=== PATIENT | female | born 1985 | race African-American/Black ===

== ENCOUNTER 2016-11-09 10:55 | Emergency (ER) | payer MEDICAID ==
[~2016-11-09] VITALS: Ht 167.6 cm; Wt 66.0 kg
[2016-11-09] MEDS ORDERED: DEXAMETHASONE 4 MG TABLET PO ONE (11:30)
[2016-11-09] MEDS ORDERED: BICILLIN-LA 1,200,000 UNITS/2 ML IM ONE (11:30)
[2016-11-09] MEDS ORDERED: OXYcodone/APAP 7.5/325MG TABLET PO ONE (11:30)
[2016-11-09] MEDS ORDERED: OXYcodone/APAP 5/325MG TABLET ONE (11:33)
[2016-11-09] MEDS ORDERED: DEXAMETHASONE 4 MG TABLET ONE (11:34)
[2016-11-09] MEDS ORDERED: OXYcodone/APAP 7.5/325MG TABLET ONE (11:38)
[2016-11-09] MEDS ORDERED: PLEASE ENTER ALLERGIES MC SCH ×2 (12:00)
[2016-11-09 12:56] VITALS: BP 120/71
== END 2016-11-09 12:57 | disposition home or self-care (01) ==
LOC: ED 11:50
DX: J02.0 Streptococcal pharyngitis (principal)
CPT/HCPCS: 36415; 86308; 93005; 96372; 99285; J0561

== ENCOUNTER 2017-03-06 18:52 | Inpatient (IN) | payer MEDICAID ==
[~2017-03-06] VITALS: Ht 167.6 cm; Wt 73.0 kg
[2017-03-06] MEDS ORDERED: FAMOTIDINE 20 MG/2 ML IVP ONE (19:30)
[2017-03-06] MEDS ORDERED: SODIUM CHLORIDE 0.9% 1,000ML IVBOLUS ONE ×2 (19:30→22:30)
[2017-03-06] MEDS ORDERED: SODIUM CHLORIDE FLUSH 10ML SYR IVF ONE (19:30)
[2017-03-06] MEDS ORDERED: ONDANSETRON 2MG/ML, 2ML IVPush ONE ×2 (19:30→22:30)
[2017-03-06] MEDS ORDERED: PLEASE ENTER HEIGHT AND WEIGHT MC SCH (19:32)
[2017-03-06 20:13] LABS: INTERNATIONAL NORMALIZED RATIO 1.03 (0.93-1.1); PROTHROMBIN TIME 10.6 Seconds (9.6-11.5)
[2017-03-06 20:18] LABS: ALANINE AMINOTRANSFERASE 68 U/L (12-78); ANION GAP 15 mmol/L (5-15); CALCIUM 8.7 mg/dL (8.5-10.1); CHLORIDE 99 mmol/L (98-107)
[2017-03-06 20:20] LABS: MEAN CORPUSCULAR HEMOGLOBIN 17.7 pg (27.0-34.8); MEAN CORPUSCULAR VOLUME 60.5 fL (80-100); MEAN PLATELET VOLUME 7.9 fL (7.4-10.4); PLATELET COUNT 323 x10^3/uL (130-400); RED BLOOD COUNT 5.41 x10^6/uL (3.82-5.3); RED CELL DISTRIBUTION WIDTH 20.1 % (9.6-15.2)
[2017-03-06 20:22] LABS: ALKALINE PHOSPHATASE 60 U/L (45-117); BILIRUBIN,TOTAL 1.1 mg/dL (0.2-1.0)
[2017-03-06 20:41] LABS: MD YES
[2017-03-06 20:43] LABS: BANDS%(MANUAL) 1 % (0-7); LYMPH#(MANUAL) 0.48 x10^3/uL (1-3.4); LYMPHS% (MANUAL) 5 % (22-44); MONOS#(MANUAL) 0.29 x10^3/uL (0.3-2.7); MONOS% (MANUAL) 3 % (2-9); SEG#(MANUAL) 8.74 x10^3/uL (1.8-6.8); SEGS% (MANUAL) 91 % (42-75)
[2017-03-06 20:44] LABS: ANISOCYTOSIS 1+; MICROCYTOSIS 1+; POLYCHROMASIA 1+
[2017-03-06 20:45] LABS: STOMATOCYTES 1+
[2017-03-06 20:46] LABS: <PLATELET ESTIMATE> ADEQUATE; HYPOCHROMIA 3+; LARGE PLATELETS 1+
[2017-03-06 21:17] LABS: MEAN CORPUSCULAR HGB CONC 29.2 g/dL (32.4-35.8)
[2017-03-06] MEDS ORDERED: MORPHINE SULFATE 4 MG/ML, 1ML ONE ×2 (22:18→22:58)
[2017-03-06] MEDS ORDERED: ONDANSETRON 2MG/ML, 2ML ONE ×2 (22:18→22:40)
[2017-03-06] MEDS: MORPHINE SULFATE 4 MG/ML, 1ML IVPush PRN ×2 (22:25→22:59)
[2017-03-06] MEDS ORDERED: FAMOTIDINE 20 MG/2 ML ONE (22:40)
[2017-03-07] MEDS ORDERED: HYDROmorphone 2 MG/ML, 1ML IV ONE
[2017-03-07] MEDS ORDERED: HYDROmorphone 2 MG/ML, 1ML ONE (00:09)
[2017-03-07 00:41] VITALS: BP 181/107
[2017-03-07] MEDS ORDERED: SODIUM CHLORIDE 0.9% 1,000 ML IV ONE (01:00)
[2017-03-07] MEDS ORDERED: BISACODYL 10 MG SUPP PR PRN (01:00)
[2017-03-07] MEDS ORDERED: DOCUSATE 100 MG CAPSULE PO PRN (01:00)
[2017-03-07] MEDS ORDERED: MORPHINE SULFATE 4 MG/ML, 1ML IVPush PRN (03:00)
[2017-03-07 03:06] VITALS: BP_SYST 174; BP_SYST 178; BP_DIAS 110; BP_DIAS 113
[2017-03-07] MEDS ORDERED: SODIUM CHLORIDE 0.9% 1,000ML IVBOLUS ONE (04:30)
[2017-03-07] MEDS: ONDANSETRON 2MG/ML, 2ML IVPush PRN ×2 (04:52→15:54)
[2017-03-07] MEDS: HYDROmorphone 2 MG/ML, 1ML IV PRN ×4 (04:52→20:45)
[2017-03-07] MEDS: SODIUM CHLORIDE 0.9% 1,000 ML IV SCH ×3 (04:54→23:11)
[2017-03-07 05:29] LABS: MICROSCOPIC AUTO
[2017-03-07 06:12] LABS: CHLORIDE 104 mmol/L (98-107)
[2017-03-07 06:18] LABS: MEAN CORPUSCULAR HEMOGLOBIN 17.6 pg (27.0-34.8); MEAN CORPUSCULAR VOLUME 60.5 fL (80-100); MEAN PLATELET VOLUME 8.4 fL (7.4-10.4); PLATELET COUNT 261 x10^3/uL (130-400); RED BLOOD COUNT 5.11 x10^6/uL (3.82-5.3); RED CELL DISTRIBUTION WIDTH 20.1 % (9.6-15.2)
[2017-03-07 06:45] VITALS: BP 168/103
[2017-03-07 06:47] LABS: ALANINE AMINOTRANSFERASE 46 U/L (12-78); ALBUMIN 3.3 g/dL (3.4-5.0); ALKALINE PHOSPHATASE 44 U/L (45-117); ANION GAP 11 mmol/L (5-15); BILIRUBIN,TOTAL 0.8 mg/dL (0.2-1.0); CALCIUM 7.2 mg/dL (8.5-10.1); CHOLESTEROL, TOTAL 267 mg/dL (140-239); CREATININE 0.74 mg/dL (0.55-1.02); HDL CHOL % 50 % (28-40); HDL CHOLESTEROL (DIRECT) 134 mg/dL (40-60); LDL CHOLESTEROL,CALCULATED 123 mg/dL (54-169); LDL/HDL RATIO 0.9 (0.5-3.0); TOTAL PROTEIN 7.5 g/dL (6.4-8.2); TRIGLYCERIDES 52 mg/dL (50-200); VLDL CHOLESTEROL 10 mg/dL (0-25)
[2017-03-07 07:10] LABS: MD YES; MEAN CORPUSCULAR HGB CONC 29.1 g/dL (32.4-35.8)
[2017-03-07 07:12] LABS: BAND#(MANUAL) 0.42 x10^3/uL; BANDS%(MANUAL) 4 % (0-7); LYMPH#(MANUAL) 0.32 x10^3/uL (1-3.4); LYMPHS% (MANUAL) 3 % (22-44); MONOS#(MANUAL) 0.21 x10^3/uL (0.3-2.7); MONOS% (MANUAL) 2 % (2-9); SEG#(MANUAL) 9.56 x10^3/uL (1.8-6.8); SEGS% (MANUAL) 91 % (42-75)
[2017-03-07 07:14] LABS: MICROCYTOSIS 2+
[2017-03-07 07:15] LABS: ANISOCYTOSIS 3+; HYPOCHROMIA 2+; SPHEROCYTES 1+; TARGET CELLS 1+
[2017-03-07 07:16] LABS: <PLATELET ESTIMATE> ADEQUATE; <PLT MORPHOLOGY> NORMAL PLT MORPH
[2017-03-07 07:17] LABS: POLYCHROMASIA 2+
[2017-03-07] MEDS: PANTOPRAZOLE 40 MG IV IVPush SCH (09:54)
[2017-03-07 10:15] LABS: CULTURE INDICATED? NO
[2017-03-07] MEDS ORDERED: MAGNESIUM SULFATE PMX 2GM/50ML 50 ML IV ONE (11:00)
[2017-03-07 12:17] VITALS: BP 165/106
[2017-03-07 19:12] VITALS: BP_SYST 161; BP_SYST 168; BP_DIAS 108; BP_DIAS 97
[2017-03-08] MEDS: HYDROmorphone 2 MG/ML, 1ML IV PRN ×6 (00:35→21:15)
[2017-03-08 00:46] VITALS: BP 141/94
[2017-03-08 05:52] LABS: CHLORIDE 105 mmol/L (98-107)
[2017-03-08 05:59] LABS: ANION GAP 8 mmol/L (5-15); CALCIUM 7.4 mg/dL (8.5-10.1)
[2017-03-08 06:13] LABS: MD YES; MEAN CORPUSCULAR HEMOGLOBIN 17.8 pg (27.0-34.8); MEAN CORPUSCULAR VOLUME 61.3 fL (80-100); MEAN PLATELET VOLUME 9.4 fL (7.4-10.4); PLATELET COUNT 266 x10^3/uL (130-400); RED BLOOD COUNT 4.99 x10^6/uL (3.82-5.3); RED CELL DISTRIBUTION WIDTH 20.8 % (9.6-15.2)
[2017-03-08 06:15] LABS: BAND#(MANUAL) 0.25 x10^3/uL; BANDS%(MANUAL) 2 % (0-7); LYMPH#(MANUAL) 0.38 x10^3/uL (1-3.4); LYMPHS% (MANUAL) 3 % (22-44); MONOS#(MANUAL) 0.38 x10^3/uL (0.3-2.7); MONOS% (MANUAL) 3 % (2-9); NRBC % (MANUAL) 1 % (0-1); SEG#(MANUAL) 11.59 x10^3/uL (1.8-6.8); SEGS% (MANUAL) 92 % (42-75)
[2017-03-08 06:16] LABS: ANISOCYTOSIS 2+; HYPOCHROMIA 2+; MICROCYTOSIS 2+; POLYCHROMASIA 1+
[2017-03-08 06:17] LABS: <PLATELET ESTIMATE> ADEQUATE; LARGE PLATELETS 1+; SPHEROCYTES 1+; STOMATOCYTES 1+; TARGET CELLS 2+
[2017-03-08] MEDS: SODIUM CHLORIDE 0.9% 1,000 ML IV SCH ×2 (06:55→14:45)
[2017-03-08 08:24] VITALS: BP 142/95
[2017-03-08] MEDS: PANTOPRAZOLE 40 MG IV IVPush SCH (09:00)
[2017-03-08] MEDS: ONDANSETRON 2MG/ML, 2ML IVPush PRN ×3 (10:13→18:01)
[2017-03-08 13:13] VITALS: BP 139/91
[2017-03-08] MEDS: NS + 20MEQ KCL 1,000 ML IV SCH (18:00)
[2017-03-08] MEDS ORDERED: OMNIPAQUE 350 MG/ML, 100ML BOTTLE ONE (19:29)
[2017-03-08 20:03] VITALS: BP 131/88
[2017-03-09 00:41] VITALS: BP 127/85
[2017-03-09] MEDS: ONDANSETRON 2MG/ML, 2ML IVPush PRN ×3 (00:41→19:41)
[2017-03-09] MEDS: HYDROmorphone 2 MG/ML, 1ML IV PRN ×8 (00:42→23:56)
[2017-03-09] MEDS: NS + 20MEQ KCL 1,000 ML IV SCH ×2 (04:02→16:02)
[2017-03-09 04:41] LABS: MEAN CORPUSCULAR HEMOGLOBIN 17.9 pg (27.0-34.8); MEAN CORPUSCULAR VOLUME 61.1 fL (80-100); MEAN PLATELET VOLUME 9.1 fL (7.4-10.4); PLATELET COUNT 226 x10^3/uL (130-400); RED BLOOD COUNT 4.57 x10^6/uL (3.82-5.3); RED CELL DISTRIBUTION WIDTH 21.4 % (9.6-15.2)
[2017-03-09 04:50] LABS: CHLORIDE 105 mmol/L (98-107)
[2017-03-09 05:01] LABS: ALANINE AMINOTRANSFERASE 21 U/L (12-78); ALBUMIN 2.5 g/dL (3.4-5.0); ALKALINE PHOSPHATASE 47 U/L (45-117); ANION GAP 8 mmol/L (5-15); BILIRUBIN,TOTAL 1.1 mg/dL (0.2-1.0); CALCIUM 7.7 mg/dL (8.5-10.1); CREATININE 0.65 mg/dL (0.55-1.02); TOTAL PROTEIN 6.5 g/dL (6.4-8.2)
[2017-03-09 06:07] LABS: MEAN CORPUSCULAR HGB CONC 29.2 g/dL (32.4-35.8)
[2017-03-09 06:08] LABS: MD YES
[2017-03-09 06:11] LABS: BAND#(MANUAL) 0.44 x10^3/uL; BANDS%(MANUAL) 3 % (0-7); LYMPH#(MANUAL) 0.15 x10^3/uL (1-3.4); LYMPHS% (MANUAL) 1 % (22-44); MONOS#(MANUAL) 0.73 x10^3/uL (0.3-2.7); MONOS% (MANUAL) 5 % (2-9); SEG#(MANUAL) 13.29 x10^3/uL (1.8-6.8); SEGS% (MANUAL) 91 % (42-75)
[2017-03-09 06:12] LABS: ANISOCYTOSIS 2+
[2017-03-09 06:13] LABS: HYPOCHROMIA 2+; MICROCYTOSIS 1+
[2017-03-09 06:15] LABS: POLYCHROMASIA 1+
[2017-03-09 06:16] LABS: <PLATELET ESTIMATE> ADEQUATE; <PLT MORPHOLOGY> NORMAL PLT MORPH; SPHEROCYTES 2+; TARGET CELLS 2+
[2017-03-09] MEDS: PANTOPRAZOLE 40 MG IV IVPush SCH (07:31)
[2017-03-09 08:14] VITALS: BP 115/73
[2017-03-09 13:38] VITALS: BP 118/74
[2017-03-09] MEDS ORDERED: CEFTRIAXONE PMX 1GM/50ML 50 ML IV SCH (15:00)
[2017-03-09] MEDS: METRONIDAZOLE PMX 500MG/100ML 100 ML IV SCH ×2 (16:02→23:56)
[2017-03-09] MEDS: CEFTRIAXONE 1,000 MG in DEXTROSE 5% 50 ML IV SCH (17:52)
[2017-03-09 18:46] LABS: RAPID INFLUENZA A Negative (Negative); RAPID INFLUENZA B Negative (Negative)
[2017-03-09 19:23] VITALS: BP 120/81
[2017-03-10 01:26] VITALS: BP 106/66
[2017-03-10] MEDS: HYDROmorphone 2 MG/ML, 1ML IV PRN ×7 (03:23→23:05)
[2017-03-10 04:15] LABS: CLOSTRIDIUM DIFFICILE TOXIN NEGATIVE (Negative)
[2017-03-10 04:18] LABS: CLOSTRIDIUM DIFFICILE ANTIGEN POSITIVE
[2017-03-10] MEDS: NS + 20MEQ KCL 1,000 ML IV SCH ×2 (04:19→15:29)
[2017-03-10 04:53] LABS: MEAN CORPUSCULAR HEMOGLOBIN 18.1 pg (27.0-34.8); MEAN CORPUSCULAR VOLUME 61.2 fL (80-100); MEAN PLATELET VOLUME 9.9 fL (7.4-10.4); PLATELET COUNT 220 x10^3/uL (130-400); RED BLOOD COUNT 4.01 x10^6/uL (3.82-5.3); RED CELL DISTRIBUTION WIDTH 21.6 % (9.6-15.2)
[2017-03-10 04:59] LABS: ANION GAP 7 mmol/L (5-15); CALCIUM 7.9 mg/dL (8.5-10.1); CHLORIDE 104 mmol/L (98-107)
[2017-03-10] MEDS ORDERED: VANCOMYCIN 50 MG/ML ORAL SUSP PO SCH (05:00)
[2017-03-10 05:01] LABS: CREATININE 0.56 mg/dL (0.55-1.02)
[2017-03-10 06:26] LABS: MD YES; MEAN CORPUSCULAR HGB CONC 29.7 g/dL (32.4-35.8)
[2017-03-10 06:29] LABS: ANISOCYTOSIS 2+; BAND#(MANUAL) 0.11 x10^3/uL; BANDS%(MANUAL) 1 % (0-7); BASOS#(MANUAL) 0.23 x10^3/uL (0-0.1); BASOS% (MANUAL) 2 % (0-1); HYPOCHROMIA 2+; LYMPHS% (MANUAL) 8 % (22-44); MONOS% (MANUAL) 8 % (2-9); NRBC % (MANUAL) 2 % (0-1); POLYCHROMASIA 1+; SEG#(MANUAL) 9.15 x10^3/uL (1.8-6.8); SEGS% (MANUAL) 81 % (42-75)
[2017-03-10 06:30] LABS: MICROCYTOSIS 2+
[2017-03-10 06:31] LABS: <PLATELET ESTIMATE> ADEQUATE; LARGE PLATELETS 1+
[2017-03-10 06:32] LABS: TARGET CELLS 1+
[2017-03-10 06:54] VITALS: BP 109/70
[2017-03-10] MEDS: METRONIDAZOLE PMX 500MG/100ML 100 ML IV SCH ×2 (08:39→15:23)
[2017-03-10] MEDS: PANTOPRAZOLE 40 MG IV IVPush SCH (08:40)
[2017-03-10] MEDS ORDERED: IBUPROFEN 600 MG TABLET PO PRN (09:00)
[2017-03-10] MEDS: ACETAMINOPHEN 325 MG TABLET PO PRN (10:10)
[2017-03-10 13:00] VITALS: BP 115/76
[2017-03-10] MEDS: CEFTRIAXONE 1,000 MG in DEXTROSE 5% 50 ML IV SCH (16:54)
[2017-03-10] MEDS: IRON SUCROSE COMPLEX 100MG/5ML IV SCH (18:46)
[2017-03-10 19:58] VITALS: BP 118/73
[2017-03-11] VITALS (14 sets, daily range): BP systolic 110–136; BP diastolic 70–96
[2017-03-11] MEDS: METRONIDAZOLE PMX 500MG/100ML 100 ML IV SCH ×3 (01:01→15:29)
[2017-03-11] MEDS: HYDROmorphone 2 MG/ML, 1ML IV PRN ×7 (02:07→21:34)
[2017-03-11 05:19] LABS: INTERNATIONAL NORMALIZED RATIO 1.07 (0.93-1.1); PROTHROMBIN TIME 11.1 Seconds (9.6-11.5)
[2017-03-11 05:26] LABS: CHLORIDE 106 mmol/L (98-107)
[2017-03-11 05:29] LABS: MEAN CORPUSCULAR HEMOGLOBIN 18.1 pg (27.0-34.8); MEAN CORPUSCULAR VOLUME 60.8 fL (80-100); MEAN PLATELET VOLUME 10.4 fL (7.4-10.4); PLATELET COUNT 240 x10^3/uL (130-400); RED BLOOD COUNT 3.65 x10^6/uL (3.82-5.3); RED CELL DISTRIBUTION WIDTH 22.9 % (9.6-15.2)
[2017-03-11 05:32] LABS: MEAN CORPUSCULAR HGB CONC 29.8 g/dL (32.4-35.8)
[2017-03-11 05:42] LABS: ANION GAP 10 mmol/L (5-15); CALCIUM 8.1 mg/dL (8.5-10.1); CREATININE 0.53 mg/dL (0.55-1.02)
[2017-03-11 05:56] LABS: MD YES
[2017-03-11 05:59] LABS: <PLATELET ESTIMATE> ADEQUATE; ANISOCYTOSIS 2+; BAND#(MANUAL) 0.38 x10^3/uL; BANDS%(MANUAL) 3 % (0-7); GIANT PLATELETS 1+; HYPOCHROMIA 2+; LARGE PLATELETS 1+; LYMPH#(MANUAL) 1.66 x10^3/uL (1-3.4); LYMPHS% (MANUAL) 13 % (22-44); MICROCYTOSIS 2+; MONOS#(MANUAL) 2.69 x10^3/uL (0.3-2.7); MONOS% (MANUAL) 21 % (2-9); POLYCHROMASIA 1+; SEG#(MANUAL) 8.06 x10^3/uL (1.8-6.8); SEGS% (MANUAL) 63 % (42-75); TARGET CELLS 1+
[2017-03-11 06:02] LABS: SMUDGE CELLS 1+
[2017-03-11] MEDS: PANTOPRAZOLE 40 MG IV IVPush SCH (07:51)
[2017-03-11] MEDS: IRON SUCROSE COMPLEX 100MG/5ML IV SCH (07:51)
[2017-03-11] MEDS ORDERED: DIPHENHYDRAMINE 25 MG CAPSULE ONE (09:10)
[2017-03-11] MEDS: ACETAMINOPHEN 325 MG TABLET PO PRN (09:12)
[2017-03-11] MEDS ORDERED: DIPHENHYDRAMINE 25 MG CAPSULE PO ONE (09:30)
[2017-03-11] MEDS: CEFTRIAXONE 1,000 MG in DEXTROSE 5% 50 ML IV SCH (17:28)
[2017-03-12] MEDS: HYDROmorphone 2 MG/ML, 1ML IV PRN ×8 (00:39→22:05)
[2017-03-12] MEDS: ACETAMINOPHEN 325 MG TABLET PO PRN ×4 (00:41→19:37)
[2017-03-12] MEDS: METRONIDAZOLE PMX 500MG/100ML 100 ML IV SCH ×3 (00:42→15:52)
[2017-03-12 04:16] VITALS: BP 134/88
[2017-03-12 04:50] LABS: ALANINE AMINOTRANSFERASE 18 U/L (12-78); ALBUMIN 2.3 g/dL (3.4-5.0); ANION GAP 9 mmol/L (5-15); CALCIUM 8.1 mg/dL (8.5-10.1); CHLORIDE 105 mmol/L (98-107); CREATININE 0.58 mg/dL (0.55-1.02)
[2017-03-12 04:52] LABS: ALKALINE PHOSPHATASE 65 U/L (45-117); BILIRUBIN,TOTAL 0.4 mg/dL (0.2-1.0); TOTAL PROTEIN 6.5 g/dL (6.4-8.2)
[2017-03-12 04:58] LABS: MEAN CORPUSCULAR HEMOGLOBIN 20.2 pg (27.0-34.8); MEAN CORPUSCULAR VOLUME 67.5 fL (80-100); MEAN PLATELET VOLUME 9.1 fL (7.4-10.4); PLATELET COUNT 256 x10^3/uL (130-400); RED BLOOD COUNT 4.57 x10^6/uL (3.82-5.3)
[2017-03-12 05:46] LABS: MD YES
[2017-03-12 05:48] LABS: BAND#(MANUAL) 0.17 x10^3/uL; BANDS%(MANUAL) 1 % (0-7); BASOS#(MANUAL) 0.17 x10^3/uL (0-0.1); BASOS% (MANUAL) 1 % (0-1); LYMPH#(MANUAL) 1.32 x10^3/uL (1-3.4); LYMPHS% (MANUAL) 8 % (22-44); MONOS#(MANUAL) 2.81 x10^3/uL (0.3-2.7); MONOS% (MANUAL) 17 % (2-9); NRBC % (MANUAL) 1 % (0-1); SEG#(MANUAL) 12.05 x10^3/uL (1.8-6.8); SEGS% (MANUAL) 73 % (42-75)
[2017-03-12 05:49] LABS: ANISOCYTOSIS 2+
[2017-03-12 05:50] LABS: <PLATELET ESTIMATE> ADEQUATE; HYPOCHROMIA 2+; LARGE PLATELETS 1+; MICROCYTOSIS 2+; POLYCHROMASIA 1+; TARGET CELLS 1+
[2017-03-12 05:51] LABS: SPHEROCYTES 1+
[2017-03-12 06:50] VITALS: BP 136/89
[2017-03-12] MEDS: IRON SUCROSE COMPLEX 100MG/5ML IV SCH (08:35)
[2017-03-12] MEDS: PANTOPRAZOLE 40 MG IV IVPush SCH (08:35)
[2017-03-12 12:42] VITALS: BP 143/92
[2017-03-12] MEDS: CEFTRIAXONE 1,000 MG in DEXTROSE 5% 50 ML IV SCH (17:11)
[2017-03-12 19:16] VITALS: BP 150/86
[2017-03-13] MEDS: HYDROmorphone 2 MG/ML, 1ML IV PRN ×5 (01:03→15:40)
[2017-03-13] MEDS: ACETAMINOPHEN 325 MG TABLET PO PRN ×4 (01:03→21:42)
[2017-03-13] MEDS: METRONIDAZOLE PMX 500MG/100ML 100 ML IV SCH ×3 (01:03→15:31)
[2017-03-13 01:04] VITALS: BP 138/87
[2017-03-13 05:18] LABS: MEAN CORPUSCULAR HEMOGLOBIN 20.1 pg (27.0-34.8); MEAN CORPUSCULAR VOLUME 67.4 fL (80-100); MEAN PLATELET VOLUME 10.1 fL (7.4-10.4); PLATELET COUNT 354 x10^3/uL (130-400); RED BLOOD COUNT 4.68 x10^6/uL (3.82-5.3); RED CELL DISTRIBUTION WIDTH 27.7 % (9.6-15.2)
[2017-03-13 05:57] LABS: MD YES
[2017-03-13 05:58] LABS: BAND#(MANUAL) 1.13 x10^3/uL; BANDS%(MANUAL) 6 % (0-7); MEAN CORPUSCULAR HGB CONC 29.9 g/dL (32.4-35.8); SEG#(MANUAL) 13.42 x10^3/uL (1.8-6.8); SEGS% (MANUAL) 71 % (42-75)
[2017-03-13 05:59] LABS: <PLATELET ESTIMATE> ADEQUATE; EOS#(MANUAL) 0.19 x10^3/uL (0.0-0.4); EOS% (MANUAL) 1 % (1-7); GIANT PLATELETS 1+; LYMPHS% (MANUAL) 9 % (22-44); METAMYELOCYTES# (MANUAL) 0.19 x10^3/uL (0-0); METAMYELOCYTES% (MANUAL) 1 % (0-1); MONOS#(MANUAL) 2.27 x10^3/uL (0.3-2.7); MONOS% (MANUAL) 12 % (2-9)
[2017-03-13 06:00] LABS: ANISOCYTOSIS 2+; HYPOCHROMIA 2+; LARGE PLATELETS 1+; MICROCYTOSIS 2+; POLYCHROMASIA 1+; TARGET CELLS 1+
[2017-03-13 07:04] VITALS: BP 146/90
[2017-03-13] MEDS: IRON SUCROSE COMPLEX 100MG/5ML IV SCH (08:22)
[2017-03-13] MEDS: PANTOPRAZOLE 40 MG IV IVPush SCH (08:22)
[2017-03-13 13:48] VITALS: BP 132/92
[2017-03-13] MEDS ORDERED: CEFTRIAXONE 1,000 MG in SODIUM CHLORIDE 0.9% 50 ML IV SCH (17:00)
[2017-03-13] MEDS: OXYcodone/APAP 5/325MG TABLET PO PRN ×2 (18:21→22:20)
[2017-03-13] MEDS: VANCOMYCIN 50 MG/ML ORAL SUSP PO SCH ×2 (18:25→22:26)
[2017-03-13 19:55] VITALS: BP 145/94
[2017-03-14] MEDS: OXYcodone/APAP 5/325MG TABLET PO PRN ×6 (02:27→22:47)
[2017-03-14 03:38] VITALS: BP 139/88
[2017-03-14] MEDS: ACETAMINOPHEN 325 MG TABLET PO PRN ×2 (03:46→09:59)
[2017-03-14] MEDS: VANCOMYCIN 50 MG/ML ORAL SUSP PO SCH ×4 (05:20→22:46)
[2017-03-14 05:48] LABS: MEAN CORPUSCULAR VOLUME 66.8 fL (80-100); MEAN PLATELET VOLUME 10.2 fL (7.4-10.4); PLATELET COUNT 432 x10^3/uL (130-400); RED BLOOD COUNT 4.78 x10^6/uL (3.82-5.3); RED CELL DISTRIBUTION WIDTH 28.5 % (9.6-15.2)
[2017-03-14 05:51] LABS: MD YES
[2017-03-14 05:52] LABS: BAND#(MANUAL) 0.19 x10^3/uL; BANDS%(MANUAL) 1 % (0-7); LYMPH#(MANUAL) 1.16 x10^3/uL (1-3.4); LYMPHS% (MANUAL) 6 % (22-44); MONOS#(MANUAL) 2.12 x10^3/uL (0.3-2.7); MONOS% (MANUAL) 11 % (2-9); SEG#(MANUAL) 15.83 x10^3/uL (1.8-6.8); SEGS% (MANUAL) 82 % (42-75)
[2017-03-14 05:53] LABS: ANISOCYTOSIS 2+; HYPOCHROMIA 2+; MICROCYTOSIS 2+; POLYCHROMASIA 1+; TARGET CELLS 1+
[2017-03-14 05:55] LABS: <PLATELET ESTIMATE> INCREASED; GIANT PLATELETS 1+; LARGE PLATELETS 1+
[2017-03-14 05:57] LABS: MEAN CORPUSCULAR HGB CONC 29.9 g/dL (32.4-35.8)
[2017-03-14 06:55] LABS: MICROSCOPIC INDICATED
[2017-03-14 07:02] LABS: CULTURE INDICATED? NO
[2017-03-14 07:25] VITALS: BP 151/90
[2017-03-14] MEDS: PANTOPRAZOLE 20MG TABLET PO SCH (10:00)
[2017-03-14] MEDS: IRON SUCROSE COMPLEX 100MG/5ML IV SCH (10:00)
[2017-03-14 13:00] VITALS: BP 125/83
[2017-03-14] MEDS: FERROUS SULFATE 325 MG TABLET PO SCH (16:39)
[2017-03-14] MEDS: HYDROmorphone 2 MG/ML, 1ML IVPush PRN ×2 (16:39→22:47)
[2017-03-14 19:47] VITALS: BP 150/90
[2017-03-15 01:21] VITALS: BP 149/96
[2017-03-15] MEDS: OXYcodone/APAP 5/325MG TABLET PO PRN ×5 (03:34→21:22)
[2017-03-15] MEDS: VANCOMYCIN 50 MG/ML ORAL SUSP PO SCH ×4 (05:04→22:56)
[2017-03-15] MEDS: HYDROmorphone 2 MG/ML, 1ML IVPush PRN ×2 (05:04→11:09)
[2017-03-15 05:08] LABS: ALANINE AMINOTRANSFERASE 16 U/L (12-78); ALBUMIN 2.4 g/dL (3.4-5.0); ANION GAP 8 mmol/L (5-15); CALCIUM 8.6 mg/dL (8.5-10.1); CHLORIDE 107 mmol/L (98-107); CREATININE 0.63 mg/dL (0.55-1.02)
[2017-03-15 05:10] LABS: ALKALINE PHOSPHATASE 95 U/L (45-117); BILIRUBIN,TOTAL 0.3 mg/dL (0.2-1.0); TOTAL PROTEIN 6.9 g/dL (6.4-8.2)
[2017-03-15 05:30] LABS: BASOPHILS # (AUTO) 0.06 x10^3/uL (0-0.1); BASOPHILS % (AUTO) 0 % (0-1); EOSINOPHILS # (AUTO) 0.18 x10^3/uL (0-0.4); EOSINOPHILS % (AUTO) 1 % (1-7); LYMPHOCYTES # (AUTO) 1.77 x10^3/uL (1-3.4); LYMPHOCYTES % (AUTO) 9 % (22-44); MD SCAN; MEAN CORPUSCULAR HEMOGLOBIN 20.5 pg (27.0-34.8); MEAN CORPUSCULAR HGB CONC 30.3 g/dL (32.4-35.8); MEAN CORPUSCULAR VOLUME 67.8 fL (80-100); MEAN PLATELET VOLUME 10.3 fL (7.4-10.4); MONOCYTES # (AUTO) 1.34 x10^3/uL (0.2-0.8); MONOCYTES % (AUTO) 7 % (2-9); NEUTROPHILS # (AUTO) 15.42 x10^3/uL (1.8-6.8); NEUTROPHILS % (AUTO) 82 % (42-75); PLATELET COUNT 527 x10^3/uL (130-400); RED BLOOD COUNT 4.92 x10^6/uL (3.82-5.3); RED CELL DISTRIBUTION WIDTH 29.7 % (9.6-15.2)
[2017-03-15 07:08] VITALS: BP 143/94
[2017-03-15] MEDS: FERROUS SULFATE 325 MG TABLET PO SCH ×2 (08:06→17:33)
[2017-03-15] MEDS: PANTOPRAZOLE 20MG TABLET PO SCH (08:06)
[2017-03-15 13:47] VITALS: BP 121/88
[2017-03-15] MEDS: KETOROLAC 30 MG/1 ML IM PRN (18:27)
[2017-03-15 19:08] VITALS: BP 122/81
[2017-03-16 01:26] VITALS: BP 154/99
[2017-03-16] MEDS: OXYcodone/APAP 5/325MG TABLET PO PRN ×7 (01:26→21:40)
[2017-03-16] MEDS: VANCOMYCIN 50 MG/ML ORAL SUSP PO SCH ×4 (05:25→22:56)
[2017-03-16] MEDS: FERROUS SULFATE 325 MG TABLET PO SCH ×2 (07:40→17:29)
[2017-03-16] MEDS: PANTOPRAZOLE 20MG TABLET PO SCH (07:40)
[2017-03-16 07:53] VITALS: BP 149/95
[2017-03-16] MEDS ORDERED: POTASSIUM CHLORIDE 40 MEQ in SODIUM CHLORIDE 0.9% 500 ML IV ONE (09:30)
[2017-03-16] MEDS: KETOROLAC 30 MG/1 ML IM PRN (12:32)
[2017-03-16 13:45] VITALS: BP 137/90
[2017-03-16 20:06] VITALS: BP 139/92
[2017-03-17 00:56] VITALS: BP 136/90
[2017-03-17] MEDS: OXYcodone/APAP 5/325MG TABLET PO PRN ×6 (02:02→22:09)
[2017-03-17 04:42] LABS: ALBUMIN 2.7 g/dL (3.4-5.0); ANION GAP 5 mmol/L (5-15); CALCIUM 8.6 mg/dL (8.5-10.1); CHLORIDE 107 mmol/L (98-107)
[2017-03-17 04:46] LABS: ALANINE AMINOTRANSFERASE 23 U/L (12-78); ALKALINE PHOSPHATASE 131 U/L (45-117); BILIRUBIN,TOTAL 0.3 mg/dL (0.2-1.0); CREATININE 0.74 mg/dL (0.55-1.02); TOTAL PROTEIN 7.2 g/dL (6.4-8.2)
[2017-03-17 04:48] LABS: MEAN CORPUSCULAR HEMOGLOBIN 20.4 pg (27.0-34.8); MEAN CORPUSCULAR HGB CONC 30.1 g/dL (32.4-35.8); MEAN CORPUSCULAR VOLUME 67.8 fL (80-100); MEAN PLATELET VOLUME 9.7 fL (7.4-10.4); PLATELET COUNT 699 x10^3/uL (130-400); RED BLOOD COUNT 5.01 x10^6/uL (3.82-5.3); RED CELL DISTRIBUTION WIDTH 30.1 % (9.6-15.2)
[2017-03-17] MEDS: VANCOMYCIN 50 MG/ML ORAL SUSP PO SCH ×3 (04:54→18:11)
[2017-03-17 06:26] LABS: BASOPHILS # (AUTO) 0.03 x10^3/uL (0-0.1); BASOPHILS % (AUTO) 0 % (0-1); EOSINOPHILS # (AUTO) 0.27 x10^3/uL (0-0.4); EOSINOPHILS % (AUTO) 2 % (1-7); LYMPHOCYTES # (AUTO) 1.59 x10^3/uL (1-3.4); LYMPHOCYTES % (AUTO) 11 % (22-44); MD SCAN; MONOCYTES # (AUTO) 0.82 x10^3/uL (0.2-0.8); MONOCYTES % (AUTO) 6 % (2-9); NEUTROPHILS # (AUTO) 11.49 x10^3/uL (1.8-6.8); NEUTROPHILS % (AUTO) 81 % (42-75)
[2017-03-17 07:57] VITALS: BP 127/86
[2017-03-17] MEDS: FERROUS SULFATE 325 MG TABLET PO SCH ×2 (09:13→18:11)
[2017-03-17] MEDS: PANTOPRAZOLE 20MG TABLET PO SCH (09:13)
[2017-03-17 13:11] LABS: MICROSCOPIC NOT IND
[2017-03-17 13:17] LABS: CULTURE INDICATED? NO
[2017-03-17 13:50] VITALS: BP 118/78
[2017-03-17 19:29] VITALS: BP 149/91
[2017-03-18] MEDS: VANCOMYCIN 50 MG/ML ORAL SUSP PO SCH ×2 (00:16→05:14)
[2017-03-18] MEDS: KETOROLAC 30 MG/1 ML IM PRN ×2 (00:24→22:11)
[2017-03-18] MEDS: OXYcodone/APAP 5/325MG TABLET PO PRN ×5 (04:08→22:11)
[2017-03-18 04:09] VITALS: BP 147/96
[2017-03-18 04:30] LABS: MEAN CORPUSCULAR HEMOGLOBIN 20.2 pg (27.0-34.8); MEAN CORPUSCULAR VOLUME 67.8 fL (80-100); MEAN PLATELET VOLUME 10.2 fL (7.4-10.4); PLATELET COUNT 658 x10^3/uL (130-400); RED BLOOD COUNT 4.91 x10^6/uL (3.82-5.3); RED CELL DISTRIBUTION WIDTH 30.3 % (9.6-15.2)
[2017-03-18 04:33] LABS: MEAN CORPUSCULAR HGB CONC 29.9 g/dL (32.4-35.8)
[2017-03-18 04:42] LABS: ALBUMIN 2.7 g/dL (3.4-5.0); ANION GAP 8 mmol/L (5-15); CALCIUM 8.8 mg/dL (8.5-10.1); CHLORIDE 106 mmol/L (98-107)
[2017-03-18 04:47] LABS: ALANINE AMINOTRANSFERASE 21 U/L (12-78); ALKALINE PHOSPHATASE 107 U/L (45-117); BILIRUBIN,TOTAL 0.3 mg/dL (0.2-1.0); CREATININE 0.67 mg/dL (0.55-1.02)
[2017-03-18 05:53] LABS: BASOPHILS # (AUTO) 0.05 x10^3/uL (0-0.1); BASOPHILS % (AUTO) 0 % (0-1); EOSINOPHILS # (AUTO) 0.19 x10^3/uL (0-0.4); EOSINOPHILS % (AUTO) 2 % (1-7); LYMPHOCYTES # (AUTO) 2.22 x10^3/uL (1-3.4); LYMPHOCYTES % (AUTO) 18 % (22-44); MD SCAN; MONOCYTES # (AUTO) 0.62 x10^3/uL (0.2-0.8); MONOCYTES % (AUTO) 5 % (2-9); NEUTROPHILS # (AUTO) 9.41 x10^3/uL (1.8-6.8); NEUTROPHILS % (AUTO) 75 % (42-75)
[2017-03-18 07:20] VITALS: BP 147/96
[2017-03-18] MEDS: FERROUS SULFATE 325 MG TABLET PO SCH ×2 (08:16→17:11)
[2017-03-18] MEDS: PANTOPRAZOLE 20MG TABLET PO SCH (08:16)
[2017-03-18 13:17] VITALS: BP 127/89
[2017-03-18] MEDS ORDERED: OXYC5TAB3 PO (16:20)
[2017-03-18] MEDS ORDERED: SENN1TAB7 PO (16:20)
[2017-03-18] MEDS ORDERED: FERR-36 PO (16:20)
[2017-03-18] MEDS ORDERED: PANT20TA3 PO (16:20)
[2017-03-18 19:49] VITALS: BP 122/82
== END 2017-03-18 22:00 | disposition home or self-care (01) | DRG 871 ==
LOC: ED 22:05 → EDIP 03-07 00:10 → 3NW 03-07 00:39
PROVIDERS: ADMIT Surgery; ATTEND Family Medicine
PROC: 30233N1 Transfusion of Nonautologous Red Blood Cells into Peripheral Vein, Percutaneous Approach (ICD-10-PCS; principal; 2017-03-11)
DX: A41.9 Sepsis, unspecified organism (principal); K85.20 Alcohol induced acute pancreatitis without necrosis or infection; J90 Pleural effusion, not elsewhere classified; A04.72 Enterocolitis due to Clostridium difficile, not specified as recurrent; D50.9 Iron deficiency anemia, unspecified; E78.00 Pure hypercholesterolemia, unspecified; F10.10 Alcohol abuse, uncomplicated; K70.11 Alcoholic hepatitis with ascites; F12.90 Cannabis use, unspecified, uncomplicated; K76.0 Fatty (change of) liver, not elsewhere classified; N92.1 Excessive and frequent menstruation with irregular cycle; Z80.0 Family history of malignant neoplasm of digestive organs; Z56.0 Unemployment, unspecified
CPT/HCPCS: 36415; 74170; 76700; 80048; 80053; 80061; 81001; 81003; 82150; 82728; 83021; 83036; 83540; 83550; 83690; 83735; 84100; 84443; 84466; 84703; 85025; 85610; 85660; 86850; 86900; 86923; 87040; 87086; 87324; 87400; 87493; 96361; 96374; 96375; J0696; J1170; J1756; J1885; J2405; J3370; J3480; Q9967; C9113; J3475; J7030; J7040; P9016; Q0163; S0028

== ENCOUNTER 2019-01-29 08:02 | Emergency (ER) | payer MEDICAID, OTHER ==
[~2019-01-29] VITALS: Ht 167.6 cm; Wt 62.4 kg
[~2019-01-29 08:02] MED LIST: FERR-51 PO; OXYC5TAB3 PO; PANT20TA3 PO; SENN-177 PO
[2019-01-29] MEDS ORDERED: OXYcodone/APAP 5/325MG TABLET ONE (08:36)
[2019-01-29] MEDS ORDERED: ONDANSETRON ODT 4 MG ONE (08:36)
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
[2019-01-29] MEDS ORDERED: ONDANSETRON ODT 4 MG PO ONE (09:00)
[2019-01-29] MEDS ORDERED: OXYcodone/APAP 5/325MG TABLET PO ONE (09:00)
[2019-01-29] MEDS ORDERED: LIDOCAINE-MPF 1%, 5ML INFIL ONE (09:00)
[2019-01-29 09:13] VITALS: BP 108/65
--- NOTE | 2019-01-29 09:13 | NUR ---
DISCHARGE INSTRUCTIONS REVIEWED.
== END 2019-01-29 09:27 | disposition home or self-care (01) ==
LOC: ED 09:05
DX: R07.89 Other chest pain (principal)
CPT/HCPCS: 73130; 99283; Q0162

== ENCOUNTER 2019-01-30 12:08 | Emergency (ER) | payer OTHER ==
[~2019-01-30] VITALS: Ht 167.6 cm; Wt 60.0 kg
[2019-01-30 12:10] VITALS: BP 118/82
[2019-01-30] MEDS ORDERED: HYDROcodone/APAP 5/325 TABLET ONE (12:50)
--- NOTE | 2019-01-30 12:51 | NUR ---
PATIENT BROUGTH BACK FOR RECHECK OF FINGER.
[2019-01-30] MEDS ORDERED: HYDROcodone/APAP 5/325 TABLET PO ONE (13:00)
[2019-01-30] MEDS ORDERED: LIDOCAINE-MPF 1%, 5ML ONE (13:11)
--- NOTE | 2019-01-30 13:25 | NUR ---
I&D COMPLETED BY Rj ODONNELL
[2019-01-30] MEDS ORDERED: LIDOCAINE-MPF 1%, 5ML INFIL ONE (13:30)
--- NOTE | 2019-01-30 13:30 | NUR ---
DISCHARGE INSTRUCTIONS REVIEWED
== END 2019-01-30 13:36 | disposition home or self-care (01) ==
LOC: ED 13:35
DX: L03.011 Cellulitis of right finger (principal)
CPT/HCPCS: 26010; 99283

== ENCOUNTER 2019-05-07 19:42 | Inpatient (IN) | payer OTHER ==
[~2019-05-07] VITALS: Ht 167.6 cm; Wt 58.5 kg
[2019-05-07 20:40] LABS: MEAN CORPUSCULAR HEMOGLOBIN 25.8 pg (27.0-34.8); MEAN CORPUSCULAR HGB CONC 30.4 g/dL (32.4-35.8); PLATELET COUNT 416 x10^3/uL (130-400); RED BLOOD COUNT 1.81 x10^6/uL (3.82-5.3); RED CELL DISTRIBUTION WIDTH 23.8 % (9.6-15.2)
--- NOTE | 2019-05-07 20:42 | NUR ---
POC DISCUSSED WITH PATIENT. AGREEABLE TO PLAN. WILL CONTINUE TO MONITOR.
[2019-05-07 20:45] LABS: ALANINE AMINOTRANSFERASE 31 U/L (12-78); ALBUMIN 2.6 g/dL (3.4-5.0); ANION GAP 10 mmol/L (5-15); CALCIUM 7.8 mg/dL (8.5-10.1); CHLORIDE 105 mmol/L (98-107); CREATININE 0.98 mg/dL (0.55-1.02)
[2019-05-07 20:50] LABS: ALKALINE PHOSPHATASE 52 U/L (45-117); BILIRUBIN,TOTAL 0.2 mg/dL (0.2-1.0); TOTAL PROTEIN 6.7 g/dL (6.4-8.2)
--- NOTE | 2019-05-07 20:56 | NUR ---
IV STARTED. POC UPDATED WITH PT.
[2019-05-07 21:01] LABS: MD YES
[2019-05-07 21:05] LABS: EOS#(MANUAL) 0.24 x10^3/uL (0.0-0.4); EOS% (MANUAL) 3 % (1-7); LYMPH#(MANUAL) 2.92 x10^3/uL (1-3.4); LYMPHS% (MANUAL) 36 % (22-44); METAMYELOCYTES# (MANUAL) 0.08 x10^3/uL (0-0); METAMYELOCYTES% (MANUAL) 1 % (0-1); MONOS#(MANUAL) 1.05 x10^3/uL (0.3-2.7); MONOS% (MANUAL) 13 % (2-9); SEG#(MANUAL) 3.81 x10^3/uL (1.8-6.8); SEGS% (MANUAL) 47 % (42-75)
[2019-05-07 21:06] LABS: HYPOCHROMIA 2+; POLYCHROMASIA 1+
[2019-05-07 21:08] LABS: ANISOCYTOSIS 2+
[2019-05-07 21:09] LABS: <PLATELET ESTIMATE> INCREASED; <PLT MORPHOLOGY> NORMAL PLT MORPH
--- NOTE | 2019-05-07 21:12 | NUR ---
REPORT TO BOWEN STONE
--- NOTE | 2019-05-07 21:16 | NUR ---
2nd IV Started, 20g rt ac in anticipation of pt needing blood transfusion due to lab values. VSS, will cont to monitor.
[2019-05-07 21:19] LABS: % IRON SATURATION 9 % (20-55); IRON LEVEL 38 mcg/dL (50-170); TOTAL IRON BINDING CAPACITY 404 mcg/dL (250-450)
--- NOTE | 2019-05-07 22:16 | NUR ---
PER SHANNON CARLTON, NO BLOOD TO BE TRANSFUSED IN ER. HOSPITALIST TO ORDER.
[2019-05-07 22:55] VITALS: BP 99/65
[2019-05-07] MEDS ORDERED: ACETAMINOPHEN 325 MG TABLET PO PRN (23:30)
[2019-05-07] MEDS ORDERED: DOCUSATE 100 MG CAPSULE PO PRN (23:30)
[2019-05-07] MEDS ORDERED: ONDANSETRON 2MG/ML, 2ML IVPush PRN (23:30)
[2019-05-07] MEDS ORDERED: PROMETHAZINE 25 MG/ML, 1ML IM PRN (23:30)
[2019-05-07] MEDS ORDERED: BISACODYL 10 MG SUPP PR PRN (23:30)
[2019-05-07] MEDS ORDERED: GABAPENTIN 300 MG CAPSULE PO PRN (23:30)
[2019-05-07] MEDS ORDERED: POLYETHYLENE GLYCOL 17 GM PACKET PO PRN (23:30)
[2019-05-07 23:42] VITALS: BP 102/69
[2019-05-07 23:57] VITALS: BP 102/67
[2019-05-08] VITALS (10 sets, daily range): BP systolic 106–119; BP diastolic 70–78
[2019-05-08] MEDS: KETOROLAC 30 MG/1 ML IV PRN ×3 (01:49→19:39)
[2019-05-08 05:39] LABS: MEAN CORPUSCULAR HEMOGLOBIN 26.7 pg (27.0-34.8); MEAN CORPUSCULAR HGB CONC 31.7 g/dL (32.4-35.8); MEAN CORPUSCULAR VOLUME 84.2 fL (80-100); PLATELET COUNT 396 x10^3/uL (130-400); RED BLOOD COUNT 2.53 x10^6/uL (3.82-5.3)
[2019-05-08 05:42] LABS: CHLORIDE 107 mmol/L (98-107)
[2019-05-08 05:53] LABS: ALANINE AMINOTRANSFERASE 29 U/L (12-78); ALBUMIN 2.5 g/dL (3.4-5.0); ALKALINE PHOSPHATASE 52 U/L (45-117); ANION GAP 6 mmol/L (5-15); BILIRUBIN,TOTAL 0.8 mg/dL (0.2-1.0); CALCIUM 7.8 mg/dL (8.5-10.1); CREATININE 0.78 mg/dL (0.55-1.02); TOTAL PROTEIN 6.4 g/dL (6.4-8.2)
[2019-05-08 06:09] LABS: MD YES
[2019-05-08 06:17] LABS: BAND#(MANUAL) 0.25 x10^3/uL; BANDS%(MANUAL) 3 % (0-7); BASOS#(MANUAL) 0.17 x10^3/uL (0-0.1); BASOS% (MANUAL) 2 % (0-1); EOS#(MANUAL) 0.08 x10^3/uL (0.0-0.4); EOS% (MANUAL) 1 % (1-7); LYMPH#(MANUAL) 2.27 x10^3/uL (1-3.4); LYMPHS% (MANUAL) 27 % (22-44); MONOS#(MANUAL) 0.42 x10^3/uL (0.3-2.7); MONOS% (MANUAL) 5 % (2-9); NRBC % (MANUAL) 2 % (0-1); SEG#(MANUAL) 5.21 x10^3/uL (1.8-6.8); SEGS% (MANUAL) 62 % (42-75)
[2019-05-08 06:20] LABS: ANISOCYTOSIS 2+; HYPOCHROMIA 1+; POLYCHROMASIA 1+
[2019-05-08 06:21] LABS: <PLATELET ESTIMATE> ADEQUATE; <PLT MORPHOLOGY> NORMAL PLT MORPH
[2019-05-08] MEDS: IRON SUCROSE COMPLEX 100MG/5ML IV SCH (10:20)
[2019-05-08] MEDS: ACETAMINOPHEN 325 MG TABLET PO SCH ×2 (13:15→21:33)
[2019-05-09 00:34] VITALS: BP 108/66
[2019-05-09] MEDS: KETOROLAC 30 MG/1 ML IV PRN (05:21)
[2019-05-09] MEDS: ACETAMINOPHEN 325 MG TABLET PO SCH ×2 (06:29→13:00)
[2019-05-09 06:51] VITALS: BP 105/70
[2019-05-09] MEDS: IRON SUCROSE COMPLEX 100MG/5ML IV SCH (10:47)
[2019-05-09] MEDS ORDERED: TRAM50TA2 PO (11:16)
[2019-05-09] MEDS ORDERED: FERR-51 PO (11:16)
[2019-05-09 12:22] VITALS: BP 101/67
== END 2019-05-09 13:53 | disposition home or self-care (01) | DRG 812 ==
LOC: ED 22:20 → EDIP 22:35 → 4EST 22:57 → DCLOUNGE 05-09 13:37
PROVIDERS: ADMIT Internal Medicine; ATTEND Hospitalist
PROC: 30233N1 Transfusion of Nonautologous Red Blood Cells into Peripheral Vein, Percutaneous Approach (ICD-10-PCS; principal; 2019-05-07)
DX: D62 Acute posthemorrhagic anemia (principal); N92.0 Excessive and frequent menstruation with regular cycle; E88.09 Other disorders of plasma-protein metabolism, not elsewhere classified; E83.51 Hypocalcemia; D25.9 Leiomyoma of uterus, unspecified; R00.0 Tachycardia, unspecified; R55 Syncope and collapse; Z83.3 Family history of diabetes mellitus; Z80.9 Family history of malignant neoplasm, unspecified
CPT/HCPCS: 36415; 76830; 80053; 83540; 83550; 84443; 84703; 85014; 85018; 85025; 86850; 86900; 86923; 93005; 96374; 99291; G0378; J1756; J1885; P9016

== ENCOUNTER 2019-06-07 12:00 | Inpatient (IN) | payer OTHER ==
[~2019-06-07] VITALS: Ht 167.6 cm; Wt 62.3 kg
[~2019-06-07 12:00] MED LIST changes: +TRAM50TA2 PO
[2019-06-07] MEDS ORDERED: SODIUM CHLORIDE 0.9% 1,000ML IVBOLUS ONE (12:30)
[2019-06-07] MEDS ORDERED: SODIUM CHLORIDE FLUSH 10ML SYR IVF ONE (12:30)
[2019-06-07] MEDS ORDERED: KETOROLAC 30 MG/1 ML IVPush ONE (12:30)
[2019-06-07] MEDS ORDERED: KETOROLAC 30 MG/1 ML ONE (12:34)
--- NOTE | 2019-06-07 12:49 | NUR ---
to ed from home. seen at ed before for same, was told she has fibroid and dysmenorrhia. c/o v heavy period "bleeding all month every day except for maybe two". sts currently 1 pad q2 hours. previously 2 tampons and pad soaked in 45 min. c/o weak/dizzy. sts +syncopal last night. 7/10 pain, uncontrolled by home apap/motrin. also sts passing clots. denies change of . labs drawn and sent, piv est, ns/toradol per may. to us. plan for pelvic. as
[2019-06-07 12:56] LABS: MEAN CORPUSCULAR HEMOGLOBIN 28.7 pg (27.0-34.8); MEAN CORPUSCULAR HGB CONC 32.7 g/dL (32.4-35.8); MEAN CORPUSCULAR VOLUME 87.6 fL (80-100); MEAN PLATELET VOLUME 8.6 fL (7.4-10.4); PLATELET COUNT 394 x10^3/uL (130-400); RED BLOOD COUNT 3.21 x10^6/uL (3.82-5.3); RED CELL DISTRIBUTION WIDTH 20.4 % (9.6-15.2)
[2019-06-07 12:59] LABS: INTERNATIONAL NORMALIZED RATIO 0.91 (0.93-1.1); PROTHROMBIN TIME 9.6 Seconds (9.6-11.5)
[2019-06-07 13:03] LABS: ALANINE AMINOTRANSFERASE 164 U/L (12-78); ALBUMIN 3.1 g/dL (3.4-5.0); ANION GAP 10 mmol/L (5-15); CALCIUM 8.1 mg/dL (8.5-10.1); CHLORIDE 105 mmol/L (98-107); CREATININE 0.88 mg/dL (0.55-1.02)
[2019-06-07 13:07] LABS: ALKALINE PHOSPHATASE 85 U/L (45-117); BILIRUBIN,TOTAL 0.1 mg/dL (0.2-1.0); TOTAL PROTEIN 7.4 g/dL (6.4-8.2)
[2019-06-07 13:33] LABS: MD YES
[2019-06-07 13:37] LABS: ANISOCYTOSIS 1+; BAND#(MANUAL) 0.14 x10^3/uL; BANDS%(MANUAL) 2 % (0-7); BASOS#(MANUAL) 0.22 x10^3/uL (0-0.1); BASOS% (MANUAL) 3 % (0-1); EOS#(MANUAL) 0.14 x10^3/uL (0.0-0.4); EOS% (MANUAL) 2 % (1-7); LYMPHS% (MANUAL) 18 % (22-44); MONOS#(MANUAL) 0.29 x10^3/uL (0.3-2.7); MONOS% (MANUAL) 4 % (2-9); NRBC % (MANUAL) 1 % (0-1); POLYCHROMASIA 1+; REACTIVE LYMPHS # (MANUAL) 0.14 x10^3/uL (0-0); REACTIVE LYMPHS % (MANUAL) 2 % (0-0); SEG#(MANUAL) 4.97 x10^3/uL (1.8-6.8); SEGS% (MANUAL) 69 % (42-75)
[2019-06-07 13:38] LABS: HYPOCHROMIA 1+
[2019-06-07 13:39] LABS: <PLATELET ESTIMATE> ADEQUATE
[2019-06-07 13:40] LABS: <PLT MORPHOLOGY> NORMAL PLT MORPH
--- NOTE | 2019-06-07 13:59 | NUR ---
tbadm for liver failure. ?icu. jian was in room for reeval. as
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
[2019-06-07] MEDS ORDERED: ACETYLCYSTEINE IV ONE ×3 (14:30→20:30)
[2019-06-07] MEDS ORDERED: DEXTROSE 5% IV ONE ×3 (14:30→20:30)
[2019-06-07] MEDS ORDERED: POTASSIUM CHLORIDE 20 MEQ TAB.ER.PRT PO ONE (14:30)
--- NOTE | 2019-06-07 14:52 | NUR ---
BREAK RN: PT RESTING, VERBALIZED NO NEEDS AT THIS TIME. IV INFUSING WELL
[2019-06-07] MEDS ORDERED: POTASSIUM CHLORIDE 20 MEQ TAB.ER.PRT ONE (14:57)
[2019-06-07] MEDS ORDERED: ONDANSETRON 2MG/ML, 2ML IVPush PRN (15:00)
[2019-06-07] MEDS ORDERED: BACLOFEN 10 MG TABLET PO PRN (15:00)
[2019-06-07] MEDS ORDERED: GABAPENTIN 300 MG CAPSULE PO PRN (15:00)
[2019-06-07] MEDS ORDERED: DOCUSATE 100 MG CAPSULE PO PRN (15:00)
[2019-06-07] MEDS ORDERED: TRAZODONE 50MG TABLET PO PRN (15:00)
[2019-06-07] MEDS ORDERED: ONDANSETRON ODT 4 MG PO PRN (15:00)
--- NOTE | 2019-06-07 15:09 | NUR ---
report to claritza mobley. as
[2019-06-07 15:50] VITALS: BP 111/71
[2019-06-07] MEDS: FERROUS SULFATE 325 MG TABLET PO SCH ×2 (17:11→20:17)
[2019-06-07 18:51] VITALS: BP 148/82
[2019-06-07] MEDS: KETOROLAC 30 MG/1 ML IV PRN (20:17)
[2019-06-08] VITALS (8 sets, daily range): BP systolic 94–106; BP diastolic 54–71
[2019-06-08] MEDS: KETOROLAC 30 MG/1 ML IV PRN ×4 (04:39→23:34)
[2019-06-08 05:46] LABS: MEAN CORPUSCULAR HGB CONC 31.3 g/dL (32.4-35.8); MEAN CORPUSCULAR VOLUME 89.5 fL (80-100); MEAN PLATELET VOLUME 8.6 fL (7.4-10.4); PLATELET COUNT 336 x10^3/uL (130-400); RED BLOOD COUNT 2.66 x10^6/uL (3.82-5.3); RED CELL DISTRIBUTION WIDTH 21.1 % (9.6-15.2)
[2019-06-08 05:53] LABS: ALBUMIN 2.6 g/dL (3.4-5.0); ANION GAP 6 mmol/L (5-15); CALCIUM 8.2 mg/dL (8.5-10.1); CHLORIDE 110 mmol/L (98-107)
[2019-06-08 05:57] LABS: ALANINE AMINOTRANSFERASE 101 U/L (12-78); ALKALINE PHOSPHATASE 71 U/L (45-117); BILIRUBIN,TOTAL 0.3 mg/dL (0.2-1.0); CREATININE 0.74 mg/dL (0.55-1.02); TOTAL PROTEIN 6.1 g/dL (6.4-8.2)
[2019-06-08 06:21] LABS: MD YES
[2019-06-08 06:23] LABS: <PLATELET ESTIMATE> ADEQUATE; <PLT MORPHOLOGY> NORMAL PLT MORPH; BASOS#(MANUAL) 0.06 x10^3/uL (0-0.1); BASOS% (MANUAL) 1 % (0-1); LYMPH#(MANUAL) 0.93 x10^3/uL (1-3.4); LYMPHS% (MANUAL) 15 % (22-44); MICROCYTOSIS 1+; MONOS#(MANUAL) 1.18 x10^3/uL (0.3-2.7); MONOS% (MANUAL) 19 % (2-9); POLYCHROMASIA 1+; SEG#(MANUAL) 4.03 x10^3/uL (1.8-6.8); SEGS% (MANUAL) 65 % (42-75)
[2019-06-08 06:24] LABS: ANISOCYTOSIS 2+; HYPOCHROMIA 2+
[2019-06-08] MEDS ORDERED: PANTOPRAZOLE 20MG TABLET PO SCH (07:30)
[2019-06-08] MEDS: FERROUS SULFATE 325 MG TABLET PO SCH ×3 (08:00→19:59)
== END 2019-06-09 01:47 | disposition home or self-care (01) | DRG 917 ==
LOC: ED 12:32 → EDIP 14:23 → 3N 15:42
PROVIDERS: ADMIT Family Medicine; ATTEND Family Medicine
PROC: 30233N1 Transfusion of Nonautologous Red Blood Cells into Peripheral Vein, Percutaneous Approach (ICD-10-PCS; principal; 2019-06-08)
DX: T39.1X1A Poisoning by 4-Aminophenol derivatives, accidental (unintentional), initial encounter (principal); K72.00 Acute and subacute hepatic failure without coma; D62 Acute posthemorrhagic anemia; E44.1 Mild protein-calorie malnutrition; D25.9 Leiomyoma of uterus, unspecified; E87.6 Hypokalemia; N92.1 Excessive and frequent menstruation with irregular cycle; N92.4 Excessive bleeding in the premenopausal period; N93.8 Other specified abnormal uterine and vaginal bleeding; N94.6 Dysmenorrhea, unspecified; Y92.89 Other specified places as the place of occurrence of the external cause; Z68.22 Body mass index [BMI] 22.0-22.9, adult
CPT/HCPCS: 36415; 76700; 76830; 80053; 80074; 80307; 83735; 84100; 84703; 85014; 85018; 85025; 85610; 86850; 86900; 86923; 93005; 96361; 96374; G0378; J0132; J1885; J7060; J7070; J7030; P9016

== ENCOUNTER 2019-10-26 03:19 | Inpatient (IN) | payer OTHER ==
[~2019-10-26] VITALS: Ht 170.2 cm; Wt 55.2 kg
[2019-10-26] VITALS (8 sets, daily range): BP systolic 127–188; BP diastolic 90–131
--- NOTE | 2019-10-26 03:23 | NUR ---
PT BIB [facility] TONIGHT FOR SYMPTOMS OF CHEST PAIN, BACK PAIN, AND N/V X 2 DAYS. PT STARTED FEELING UNWELL THE OTHER NIGHT. PT CALLED 911 TO BE CHECKED OUT. PIV ACCESS ESTABLISHED BY EMS AND PT MEDICATED WITH IV FLUIDS, ZOFRAN, AND 50 MCG FENTANYL FOR PAIN. UPON ARRIVAL TO [facility] ED, EKG OBTAINED AT BS. PT ATTACHED TO VS AND CARDIAC MONITORS. VSS AT THIS TIME. PT HAS CALL LIGHT WITHIN REACH AND VERBALIZES UNDERSTANDING OF ER PROCESS. REPORT OF PT GIVEN TO DR WOLF. AWAITING ERP FOR PT HISTORY AND ASSESSMENT AT THIS TIME.
[2019-10-26] MEDS ORDERED: ONDANSETRON 2MG/ML, 2ML ONE (03:45)
[2019-10-26] MEDS ORDERED: MORPHINE SULFATE 4 MG/ML, 1ML ONE ×2 (03:45→05:28)
[2019-10-26] MEDS: MORPHINE SULFATE 4 MG/ML, 1ML IVPush PRN ×4 (03:49→20:43)
--- NOTE | 2019-10-26 03:50 | NUR ---
PT MEDICATED PER MAY. PT RESTING IN [facility] AT THIS TIME WITH CALL LIGHT WITHIN REACH.
[2019-10-26 03:58] LABS: MEAN CORPUSCULAR HEMOGLOBIN 27.2 pg (27.0-34.8); MEAN CORPUSCULAR VOLUME 90.6 fL (80-100); MEAN PLATELET VOLUME 8.6 fL (7.4-10.4); PLATELET COUNT 312 x10^3/uL (130-400); RED BLOOD COUNT 4.28 x10^6/uL (3.82-5.3); RED CELL DISTRIBUTION WIDTH 22.6 % (9.6-15.2)
[2019-10-26] MEDS ORDERED: ONDANSETRON 2MG/ML, 2ML IVPush ONE (04:00)
[2019-10-26] MEDS ORDERED: SODIUM CHLORIDE 0.9% 1,000ML IVBOLUS ONE (04:00)
[2019-10-26 04:04] LABS: ALANINE AMINOTRANSFERASE 70 U/L (12-78); ALBUMIN 3.8 g/dL (3.4-5.0); ANION GAP 18 mmol/L (5-15); CALCIUM 8.4 mg/dL (8.5-10.1); CHLORIDE 104 mmol/L (98-107); CREATININE 1.12 mg/dL (0.55-1.02)
[2019-10-26 04:08] LABS: ALKALINE PHOSPHATASE 59 U/L (45-117); BILIRUBIN,TOTAL 1.9 mg/dL (0.2-1.0); MD YES; TOTAL PROTEIN 8.5 g/dL (6.4-8.2)
[2019-10-26 04:11] LABS: BANDS%(MANUAL) 4 % (0-7); EOS% (MANUAL) 1 % (1-7); LYMPHS% (MANUAL) 4 % (22-44); MONOS#(MANUAL) 0.51 x10^3/uL (0.3-2.7); MONOS% (MANUAL) 5 % (2-9); SEG#(MANUAL) 8.69 x10^3/uL (1.8-6.8); SEGS% (MANUAL) 86 % (42-75)
[2019-10-26 04:12] LABS: ANISOCYTOSIS 2+
[2019-10-26 04:13] LABS: POLYCHROMASIA 1+
[2019-10-26 04:14] LABS: <PLATELET ESTIMATE> ADEQUATE; LARGE PLATELETS 1+
--- NOTE | 2019-10-26 05:07 | NUR ---
PT TO CT VIA [facility] AT THIS TIME.
[2019-10-26] MEDS ORDERED: PROMETHAZINE 25 MG/ML, 1ML IM ONE (05:30)
--- NOTE | 2019-10-26 05:30 | NUR ---
Gauri RN: pt medicated for pain on behalf of primary RN. positioning for comfort and oral swabs given for comfort. primary RN Praveen meeks
[2019-10-26 05:32] LABS: PH, VENOUS 7.273 pH (7.320-7.420)
[2019-10-26] MEDS ORDERED: OMNIPAQUE 350 MG/ML, 100ML BOTTLE ONE (05:40)
[2019-10-26] MEDS ORDERED: PROMETHAZINE 25 MG/ML, 1ML ONE (05:46)
--- NOTE | 2019-10-26 05:50 | NUR ---
PT MEDICATED PER MAR. PT VSS
[2019-10-26 06:00] LABS: ACETONE, SERUM Large (80mg/dL) (Negative)
[2019-10-26] MEDS ORDERED: MAGNESIUM SULFATE 1 GM, THIAMINE 100 MG, FOLIC ACID 1 MG, MVI ADULT 10 ML in SODIUM CHL... IV ONE (06:00)
--- NOTE | 2019-10-26 06:15 | NUR ---
PHARMACY SHEET TUBED TO PHARMACY. CONFIRMED ORDER WITH ALEX VIA TELEPHONE.
--- NOTE | 2019-10-26 06:21 | NUR ---
PT ASLEEP IN [facility] AT THIS TIME; NADN. CALL LIGHT IS WITHIN REACH OF THE PATIENT.
--- NOTE | 2019-10-26 06:47 | NUR ---
REPORT OF PT TO RN SHAYY. ALL QUESTIONS ANSWERED. TECH PAGED FOR TRANSPORT OF PT TO FLOOR AT THIS TIME.
--- NOTE | 2019-10-26 07:03 | NUR ---
PT MEDICATED PER MAY. REPORT OF PT TO BOWEN FORRESTER AT THIS TIME. ALL QUESTIONS ANSWERED.
[2019-10-26] MEDS ORDERED: LORazepam 0.5MG TABLET PO PRN (07:30)
[2019-10-26] MEDS ORDERED: LORazepam 1MG TABLET PO PRN (07:30)
[2019-10-26] MEDS ORDERED: ACETAMINOPHEN 325 MG TABLET PO PRN (07:30)
[2019-10-26] MEDS ORDERED: ONDANSETRON ODT 4 MG PO PRN (07:30)
[2019-10-26] MEDS ORDERED: ONDANSETRON 2MG/ML, 2ML IVPush PRN (07:30)
[2019-10-26] MEDS: FERROUS SULFATE 325 MG TABLET PO SCH (07:30)
[2019-10-26] MEDS ORDERED: LORazepam 2 MG/ML, 1ML IV PRN ×6 (07:30→11:00)
[2019-10-26] MEDS: SODIUM CHLORIDE 0.9% 1,000 ML IV SCH (08:10)
[2019-10-26] MEDS: THIAMINE 100MG TABLET PO SCH ×2 (08:10→20:42)
[2019-10-26] MEDS: CHLORDIAZEPOXIDE 25 MG CAPSULE PO SCH ×3 (08:10→20:42)
[2019-10-26] MEDS: HEPARIN 5,000 UNITS/ML, 1ML SQ SCH ×2 (08:10→20:42)
[2019-10-26] MEDS: KETOROLAC 30 MG/1 ML IV PRN ×2 (08:26→15:12)
[2019-10-26] MEDS: PROMETHAZINE 25 MG/ML, 1ML IM PRN (10:58)
[2019-10-26 11:25] LABS: MICROSCOPIC INDICATED
[2019-10-26] MEDS: AMLODIPINE 10 MG TAB PO SCH (13:25)
[2019-10-26] MEDS ORDERED: LISINOPRIL 10 MG TABLET PO SCH (13:30)
[2019-10-27 00:39] VITALS: BP 111/80
[2019-10-27] MEDS: KETOROLAC 30 MG/1 ML IV PRN ×4 (01:25→21:13)
[2019-10-27] MEDS: SODIUM CHLORIDE 0.9% 1,000 ML IV SCH ×2 (01:26→18:06)
[2019-10-27] MEDS: PROMETHAZINE 25 MG/ML, 1ML IM PRN (01:26)
[2019-10-27] MEDS: CHLORDIAZEPOXIDE 25 MG CAPSULE PO SCH ×4 (02:45→20:44)
[2019-10-27 06:19] LABS: MEAN CORPUSCULAR HEMOGLOBIN 27.5 pg (27.0-34.8); MEAN CORPUSCULAR HGB CONC 31.2 g/dL (32.4-35.8); MEAN CORPUSCULAR VOLUME 88.3 fL (80-100); MEAN PLATELET VOLUME 9.2 fL (7.4-10.4); PLATELET COUNT 241 x10^3/uL (130-400); RED CELL DISTRIBUTION WIDTH 23.6 % (9.6-15.2)
[2019-10-27 06:23] LABS: ANION GAP 10 mmol/L (5-15); CALCIUM 8.4 mg/dL (8.5-10.1); CHLORIDE 110 mmol/L (98-107)
[2019-10-27 06:24] LABS: % IRON SATURATION 6 % (20-55); CREATININE 0.66 mg/dL (0.55-1.02); IRON LEVEL 27 mcg/dL (50-170); TOTAL IRON BINDING CAPACITY 485 mcg/dL (250-450)
[2019-10-27 06:43] LABS: MD YES
[2019-10-27 06:45] LABS: <PLATELET ESTIMATE> ADEQUATE; ANISOCYTOSIS 1+; BAND#(MANUAL) 0.05 x10^3/uL; BANDS%(MANUAL) 1 % (0-7); EOS% (MANUAL) 2 % (1-7); LYMPH#(MANUAL) 0.94 x10^3/uL (1-3.4); LYMPHS% (MANUAL) 18 % (22-44); MONOS#(MANUAL) 0.42 x10^3/uL (0.3-2.7); MONOS% (MANUAL) 8 % (2-9); POLYCHROMASIA 1+; SEG#(MANUAL) 3.69 x10^3/uL (1.8-6.8); SEGS% (MANUAL) 71 % (42-75)
[2019-10-27 06:46] LABS: <PLT MORPHOLOGY> NORMAL PLT MORPH
[2019-10-27 08:15] VITALS: BP 112/78
[2019-10-27] MEDS ORDERED: POTASSIUM CHLORIDE 20 MEQ TAB.ER.PRT PO ONE (08:30)
[2019-10-27] MEDS: HEPARIN 5,000 UNITS/ML, 1ML SQ SCH ×2 (09:00→20:44)
[2019-10-27] MEDS: AMLODIPINE 10 MG TAB PO SCH (09:01)
[2019-10-27] MEDS: LISINOPRIL 5 MG TABLET PO SCH (09:02)
[2019-10-27] MEDS: THIAMINE 100MG TABLET PO SCH ×2 (09:02→20:44)
[2019-10-27 14:15] VITALS: BP 92/63
[2019-10-27 19:33] VITALS: BP 98/67
[2019-10-28 01:01] VITALS: BP 95/69
[2019-10-28] MEDS: CHLORDIAZEPOXIDE 25 MG CAPSULE PO SCH (02:37)
[2019-10-28 06:47] LABS: MEAN CORPUSCULAR HEMOGLOBIN 27.5 pg (27.0-34.8); MEAN CORPUSCULAR HGB CONC 30.8 g/dL (32.4-35.8); MEAN CORPUSCULAR VOLUME 89.3 fL (80-100); MEAN PLATELET VOLUME 8.9 fL (7.4-10.4); PLATELET COUNT 214 x10^3/uL (130-400); RED BLOOD COUNT 2.95 x10^6/uL (3.82-5.3); RED CELL DISTRIBUTION WIDTH 23.5 % (9.6-15.2)
[2019-10-28 06:48] LABS: MD YES
[2019-10-28 06:51] LABS: EOS#(MANUAL) 0.12 x10^3/uL (0.0-0.4); EOS% (MANUAL) 4 % (1-7); LYMPHS% (MANUAL) 30 % (22-44); MONOS#(MANUAL) 0.39 x10^3/uL (0.3-2.7); MONOS% (MANUAL) 13 % (2-9); REACTIVE LYMPHS # (MANUAL) 0.03 x10^3/uL (0-0); REACTIVE LYMPHS % (MANUAL) 1 % (0-0); SEG#(MANUAL) 1.56 x10^3/uL (1.8-6.8); SEGS% (MANUAL) 52 % (42-75)
[2019-10-28 06:53] LABS: ANISOCYTOSIS 1+
[2019-10-28 06:54] LABS: <PLATELET ESTIMATE> ADEQUATE; <PLT MORPHOLOGY> NORMAL PLT MORPH
[2019-10-28 08:12] VITALS: BP 92/60
[2019-10-28 08:22] LABS: ANION GAP 8 mmol/L (5-15); CALCIUM 7.4 mg/dL (8.5-10.1); CHLORIDE 113 mmol/L (98-107); CREATININE 0.71 mg/dL (0.55-1.02)
[2019-10-28] MEDS: FERROUS SULFATE 325 MG TABLET PO SCH (08:33)
[2019-10-28] MEDS: THIAMINE 100MG TABLET PO SCH (08:33)
[2019-10-28] MEDS: HEPARIN 5,000 UNITS/ML, 1ML SQ SCH (08:34)
[2019-10-28] MEDS: LISINOPRIL 5 MG TABLET PO SCH (08:34)
[2019-10-28] MEDS ORDERED: FERR-51 PO (10:07)
[2019-10-28] MEDS ORDERED: THIA100T67 PO (10:07)
[2019-10-28 12:58] VITALS: BP 101/68
== END 2019-10-28 16:35 | disposition home or self-care (01) | DRG 439 ==
LOC: ED 05:17 → EDIP 06:09 → 3N 07:39 → 5SO 10:19 → DCLOUNGE 10-28 16:23
PROVIDERS: ADMIT Internal Medicine; ATTEND Internal Medicine
DX: K85.90 Acute pancreatitis without necrosis or infection, unspecified (principal); E87.2 Acidosis; F10.239 Alcohol dependence with withdrawal, unspecified; D25.9 Leiomyoma of uterus, unspecified; D50.9 Iron deficiency anemia, unspecified; E78.5 Hyperlipidemia, unspecified; E87.6 Hypokalemia; G47.00 Insomnia, unspecified; I10 Essential (primary) hypertension; K70.10 Alcoholic hepatitis without ascites; K76.0 Fatty (change of) liver, not elsewhere classified; F12.90 Cannabis use, unspecified, uncomplicated; N94.6 Dysmenorrhea, unspecified; Z83.3 Family history of diabetes mellitus; Z87.891 Personal history of nicotine dependence
CPT/HCPCS: 36415; 74177; 80048; 80053; 80307; 81001; 82010; 82330; 82803; 83540; 83550; 83605; 83690; 83735; 84703; 85025; 87086; G0378; J1644; J1885; J2405; J2550; J3411; J3475; Q0162; Q9967; J2060; J2270; J7030

== ENCOUNTER 2019-12-04 11:34 | Inpatient (IN) | payer OTHER ==
[~2019-12-04] VITALS: Ht 167.6 cm; Wt 51.8 kg
[2019-12-04] VITALS (9 sets, daily range): BP systolic 95–131; BP diastolic 54–82
[~2019-12-04 11:34] MED LIST changes: -PANT20TA3 PO; +PANT20TA4 PO; +THIA100T67 PO
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
[2019-12-04] MEDS ORDERED: ONDANSETRON 2MG/ML, 2ML ONE (12:11)
[2019-12-04] MEDS ORDERED: MORPHINE SULFATE 4 MG/ML, 1ML ONE ×3 (12:11→18:06)
[2019-12-04] MEDS: MORPHINE SULFATE 4 MG/ML, 1ML IVPush PRN ×2 (12:13→15:14)
--- NOTE | 2019-12-04 12:21 | NUR ---
VIRTUAL REALITY SPECIALIST AT BEDSIDE DRAWING BLOOD, PATIENT MEDICATED PER eMAR.
[2019-12-04] MEDS ORDERED: SODIUM CHLORIDE FLUSH 10ML SYR IVF ONE (12:30)
[2019-12-04] MEDS ORDERED: SODIUM CHLORIDE 0.9% 1,000ML IVBOLUS ONE (12:30)
[2019-12-04] MEDS ORDERED: ONDANSETRON 2MG/ML, 2ML IVPush ONE (12:30)
[2019-12-04 12:46] LABS: MEAN CORPUSCULAR HEMOGLOBIN 27.4 pg (27.0-34.8); MEAN CORPUSCULAR HGB CONC 31.5 g/dL (32.4-35.8); MEAN PLATELET VOLUME 8.2 fL (7.4-10.4); PLATELET COUNT 305 x10^3/uL (130-400); RED BLOOD COUNT 2.08 x10^6/uL (3.82-5.3); RED CELL DISTRIBUTION WIDTH 19.6 % (9.6-15.2)
[2019-12-04 12:59] LABS: MD YES
[2019-12-04 13:01] LABS: ANISOCYTOSIS 1+; BAND#(MANUAL) 0.05 x10^3/uL; BANDS%(MANUAL) 1 % (0-7); HYPOCHROMIA 1+; LYMPH#(MANUAL) 0.94 x10^3/uL (1-3.4); LYMPHS% (MANUAL) 20 % (22-44); MONOS#(MANUAL) 0.24 x10^3/uL (0.3-2.7); MONOS% (MANUAL) 5 % (2-9); OVALOCYTES 1+; POLYCHROMASIA 1+; SEG#(MANUAL) 3.48 x10^3/uL (1.8-6.8); SEGS% (MANUAL) 74 % (42-75)
[2019-12-04 13:02] LABS: <PLATELET ESTIMATE> ADEQUATE; <PLT MORPHOLOGY> NORMAL PLT MORPH
--- NOTE | 2019-12-04 13:03 | NUR ---
PATIENT IN ULTRASOUND.
[2019-12-04 13:04] LABS: CHLORIDE 113 mmol/L (98-107)
[2019-12-04 13:10] LABS: ALANINE AMINOTRANSFERASE 43 U/L (12-78); ALBUMIN 2.8 g/dL (3.4-5.0); ALKALINE PHOSPHATASE 41 U/L (45-117); ANION GAP 11 mmol/L (5-15); BILIRUBIN,TOTAL 0.2 mg/dL (0.2-1.0); CALCIUM 7.2 mg/dL (8.5-10.1); CREATININE 1.31 mg/dL (0.55-1.02); TOTAL PROTEIN 5.7 g/dL (6.4-8.2)
--- NOTE | 2019-12-04 13:54 | NUR ---
PT RESTING IN BED, VSS, NO REACTION NOTED.
--- NOTE | 2019-12-04 15:36 | NUR ---
PATIENT REPORTS PAIN LEVEL OF 7/10, MEDICATED PER eMAR, BLOOD STILL TRANSFUSING. NO ACUTE SIGNS OF DISTRESS OR TRANSFUSION REACTION NOTED, CALL LIGHT WITHIN REACH, SIDE RAILS UP X2.
[2019-12-04] MEDS ORDERED: SODIUM CHLORIDE FLUSH 10ML SYR IVF PRN (17:00)
--- NOTE | 2019-12-04 17:12 | NUR ---
Hospitalist at bedside to discuss POC.
[2019-12-04] MEDS ORDERED: DIPHENHYDRAMINE 12.5MG/5ML, 10ML UDC PO ONE (17:30)
[2019-12-04] MEDS ORDERED: ACETAMINOPHEN 325 MG TABLET PO PRN (17:30)
[2019-12-04] MEDS ORDERED: hydrALAzine 20 MG/ML, 1ML IVPush PRN (17:30)
[2019-12-04] MEDS ORDERED: LORazepam 2 MG/ML, 1ML IVPush PRN (17:30)
[2019-12-04] MEDS: LACTATED RINGERS 1,000 ML IV SCH (17:39)
--- NOTE | 2019-12-04 17:59 | NUR ---
REPORT CALLED TO BOWEN KOTHARI ON MEDICAL/TELEMETRY FOR TRANSFER OF CARE.
[2019-12-04] MEDS: morphine SULFATE 10 MG/ML, 1ML IVPush PRN ×2 (18:08→22:16)
--- NOTE | 2019-12-04 18:35 | NUR ---
PATIENT TRANSFERED VIA HOSPITAL BED TO FLOOR BY TICKER WIRER AND THIS RN WITH ALL PATIENT BELONGINGS GATHERED AND TAKEN WITH PATIENT.
[2019-12-04] MEDS ORDERED: DIPHENHYDRAMINE 50 MG/ML, 1ML ONE (22:16)
[2019-12-04] MEDS ORDERED: TRANEXAMIC ACID 1,000 MG in SODIUM CHLORIDE 0.9% 100 ML IV ONE (22:30)
[2019-12-05] VITALS (12 sets, daily range): BP systolic 96–132; BP diastolic 64–88
[2019-12-05] MEDS: IRON SUCROSE COMPLEX 100MG/5ML IV SCH ×2 (00:20→20:22)
[2019-12-05] MEDS: morphine SULFATE 10 MG/ML, 1ML IVPush PRN ×3 (01:36→09:32)
[2019-12-05 04:33] LABS: BASOPHILS # (AUTO) 0.03 x10^3/uL (0-0.1); BASOPHILS % (AUTO) 1 % (0-1); EOSINOPHILS # (AUTO) 0.02 x10^3/uL (0-0.4); EOSINOPHILS % (AUTO) 1 % (1-7); LYMPHOCYTES # (AUTO) 1.32 x10^3/uL (1-3.4); LYMPHOCYTES % (AUTO) 25 % (22-44); MD NO; MEAN CORPUSCULAR HEMOGLOBIN 28.8 pg (27.0-34.8); MEAN CORPUSCULAR HGB CONC 31.9 g/dL (32.4-35.8); MEAN PLATELET VOLUME 8.3 fL (7.4-10.4); MONOCYTES # (AUTO) 0.34 x10^3/uL (0.2-0.8); MONOCYTES % (AUTO) 6 % (2-9); NEUTROPHILS # (AUTO) 3.67 x10^3/uL (1.8-6.8); NEUTROPHILS % (AUTO) 68 % (42-75); PLATELET COUNT 216 x10^3/uL (130-400); RED BLOOD COUNT 2.62 x10^6/uL (3.82-5.3); RED CELL DISTRIBUTION WIDTH 16.9 % (9.6-15.2)
[2019-12-05 04:39] LABS: ANION GAP 6 mmol/L (5-15); CALCIUM 6.9 mg/dL (8.5-10.1); CHLORIDE 111 mmol/L (98-107)
[2019-12-05 04:40] LABS: CREATININE 0.82 mg/dL (0.55-1.02)
[2019-12-05] MEDS: LACTATED RINGERS 1,000 ML IV SCH (07:56)
[2019-12-05] MEDS ORDERED: GADOTERATE 7.5 MMOL/15 ML SYR ONE (09:03)
[2019-12-05] MEDS: OXYcodone IR 5MG TABLET PO PRN ×3 (09:56→20:22)
[2019-12-06 00:30] VITALS: BP 116/78
[2019-12-06] MEDS: OXYcodone IR 5MG TABLET PO PRN ×4 (00:34→19:51)
[2019-12-06 01:50] VITALS: BP 104/67
[2019-12-06] MEDS: LACTATED RINGERS 1,000 ML IV SCH (02:17)
[2019-12-06 06:52] VITALS: BP 114/65
[2019-12-06] MEDS: SENNA/DOCUSATE TABLET PO SCH (08:57)
[2019-12-06 13:07] VITALS: BP 107/66
[2019-12-06] MEDS ORDERED: LIDOCAINE 1%, 10ML ONE (13:37)
[2019-12-06] MEDS ORDERED: FLUMAZENIL 0.1 MG/1 ML, 5ML ONE (13:50)
[2019-12-06] MEDS ORDERED: NALOXONE 1 MG/ML, 2ML ONE (13:50)
[2019-12-06] MEDS ORDERED: FENTANYL PF 100 MCG/2ML ONE ×2 (13:50→16:21)
[2019-12-06] MEDS ORDERED: MIDAZOLAM 1 MG/ML, 5ML ONE (13:50)
[2019-12-06] MEDS ORDERED: DOXYCYCLINE 100 MG in DEXTROSE 5% 250 ML IV ONE ×2 (14:30→20:00)
[2019-12-06] MEDS ORDERED: DIPHENHYDRAMINE 50 MG/ML, 1ML ONE (15:51)
[2019-12-06] MEDS ORDERED: VISIPAQUE 270 MG/ML, 150ML BOTTLE ONE (16:24)
[2019-12-06] MEDS ORDERED: VISIPAQUE 270 MG/ML, 50ML BOTTLE ONE (16:24)
[2019-12-06] MEDS ORDERED: MORPHINE 30MG/30ML PCA.SYR IV PRN ×2 (17:00→19:00)
[2019-12-06] MEDS: morphine SULFATE 10 MG/ML, 1ML IVPush PRN ×2 (17:40→18:58)
[2019-12-06] MEDS: MORPHINE 30MG/30ML PCA.SYR IV PRN ×2 (21:33→22:51)
[2019-12-06 23:30] VITALS: BP 164/98
[2019-12-07] MEDS: IRON SUCROSE COMPLEX 100MG/5ML IV SCH (00:04)
[2019-12-07] MEDS: OXYcodone/APAP 10/325MG TABLET PO PRN ×5 (01:01→21:45)
[2019-12-07 01:18] VITALS: BP 166/109
[2019-12-07] MEDS: LACTATED RINGERS 1,000 ML IV SCH ×2 (02:19→21:00)
[2019-12-07] MEDS: ONDANSETRON 2MG/ML, 2ML IVPush PRN (03:23)
[2019-12-07] MEDS: MORPHINE 30MG/30ML PCA.SYR IV PRN ×5 (03:43→22:03)
[2019-12-07 06:16] VITALS: BP 148/88
[2019-12-07] MEDS: SENNA/DOCUSATE TABLET PO SCH (08:11)
[2019-12-07 12:23] VITALS: BP 126/84
[2019-12-07] MEDS ORDERED: ONDANSETRON ODT 4 MG ONE (15:45)
[2019-12-07] MEDS ORDERED: ONDANSETRON ODT 4 MG PO PRN (16:00)
[2019-12-07 19:27] VITALS: BP 131/89
[2019-12-08] MEDS: IRON SUCROSE COMPLEX 100MG/5ML IV SCH (00:22)
[2019-12-08 02:21] VITALS: BP 120/76
[2019-12-08] MEDS: MORPHINE 30MG/30ML PCA.SYR IV PRN ×3 (02:31→10:26)
[2019-12-08 05:26] LABS: ANION GAP 6 mmol/L (5-15); CALCIUM 8.4 mg/dL (8.5-10.1); CHLORIDE 104 mmol/L (98-107); CREATININE 1.13 mg/dL (0.55-1.02)
[2019-12-08 05:29] LABS: BASOPHILS % (AUTO) 0 % (0-1); EOSINOPHILS # (AUTO) 0.18 x10^3/uL (0-0.4); EOSINOPHILS % (AUTO) 2 % (1-7); LYMPHOCYTES # (AUTO) 1.44 x10^3/uL (1-3.4); LYMPHOCYTES % (AUTO) 14 % (22-44); MD NO; MEAN CORPUSCULAR HEMOGLOBIN 29.9 pg (27.0-34.8); MEAN CORPUSCULAR HGB CONC 32.8 g/dL (32.4-35.8); MEAN PLATELET VOLUME 9.2 fL (7.4-10.4); MONOCYTES # (AUTO) 0.93 x10^3/uL (0.2-0.8); MONOCYTES % (AUTO) 9 % (2-9); NEUTROPHILS # (AUTO) 7.57 x10^3/uL (1.8-6.8); NEUTROPHILS % (AUTO) 75 % (42-75); PLATELET COUNT 325 x10^3/uL (130-400); RED BLOOD COUNT 2.94 x10^6/uL (3.82-5.3); RED CELL DISTRIBUTION WIDTH 17.2 % (9.6-15.2)
[2019-12-08 07:02] VITALS: BP 122/74
[2019-12-08] MEDS ORDERED: POTASSIUM CHLORIDE 40 MEQ in SODIUM CHLORIDE 0.9% 500 ML IV ONE (08:00)
[2019-12-08] MEDS: SENNA/DOCUSATE TABLET PO SCH (08:40)
[2019-12-08] MEDS: OXYcodone/APAP 10/325MG TABLET PO PRN ×2 (08:41→12:43)
[2019-12-08] MEDS: LACTATED RINGERS 1,000 ML IV SCH (10:20)
[2019-12-08] MEDS ORDERED: MORPHINE 30MG/30ML PCA.SYR IV PRN (10:37)
[2019-12-08 12:07] VITALS: BP 121/78
[2019-12-08] MEDS: OXYcodone IR 5MG TABLET PO PRN ×3 (13:29→21:08)
[2019-12-08 21:21] VITALS: BP 118/72
[2019-12-09] MEDS: OXYcodone IR 5MG TABLET PO PRN ×6 (00:07→20:58)
[2019-12-09] MEDS: LACTATED RINGERS 1,000 ML IV SCH ×2 (00:07→13:18)
[2019-12-09] MEDS: IRON SUCROSE COMPLEX 100MG/5ML IV SCH (00:15)
[2019-12-09 01:50] VITALS: BP 124/79
[2019-12-09 05:08] LABS: ANION GAP 4 mmol/L (5-15); CALCIUM 8.1 mg/dL (8.5-10.1); CHLORIDE 106 mmol/L (98-107)
[2019-12-09 05:09] LABS: CREATININE 0.78 mg/dL (0.55-1.02)
[2019-12-09 05:21] LABS: BASOPHILS # (AUTO) 0.02 x10^3/uL (0-0.1); BASOPHILS % (AUTO) 0 % (0-1); EOSINOPHILS % (AUTO) 0 % (1-7); LYMPHOCYTES # (AUTO) 0.89 x10^3/uL (1-3.4); LYMPHOCYTES % (AUTO) 7 % (22-44); MD NO; MEAN CORPUSCULAR HEMOGLOBIN 29.3 pg (27.0-34.8); MEAN CORPUSCULAR HGB CONC 31.2 g/dL (32.4-35.8); MONOCYTES # (AUTO) 1.22 x10^3/uL (0.2-0.8); MONOCYTES % (AUTO) 9 % (2-9); NEUTROPHILS # (AUTO) 11.58 x10^3/uL (1.8-6.8); NEUTROPHILS % (AUTO) 84 % (42-75); PLATELET COUNT 329 x10^3/uL (130-400); RED BLOOD COUNT 2.73 x10^6/uL (3.82-5.3); RED CELL DISTRIBUTION WIDTH 19.1 % (9.6-15.2)
[2019-12-09 07:07] VITALS: BP 105/69
[2019-12-09] MEDS: SENNA/DOCUSATE TABLET PO SCH (08:53)
[2019-12-09] MEDS: ONDANSETRON 2MG/ML, 2ML IVPush PRN (09:00)
[2019-12-09] MEDS ORDERED: POTASSIUM CHLORIDE 20 MEQ TAB.ER.PRT PO ONE (09:30)
[2019-12-09] MEDS: GABAPENTIN 300 MG CAPSULE PO SCH ×2 (10:09→19:56)
[2019-12-09] MEDS ORDERED: BISACODYL 10 MG SUPP PR PRN (10:30)
[2019-12-09] MEDS: CEFTRIAXONE PMX 1GM/50ML 50 ML IV SCH (10:31)
[2019-12-09] MEDS: POLYETHYLENE GLYCOL 17 GM PACKET PO SCH ×2 (10:31→19:56)
[2019-12-09] MEDS: SENNOSIDES 8.6 MG TABLET PO SCH ×2 (10:31→19:56)
[2019-12-09 12:11] VITALS: BP 113/76
[2019-12-09] MEDS: OMEPRAZOLE 20 MG CAPSULE.DR PO SCH (15:42)
[2019-12-09 15:51] LABS: MICROSCOPIC AUTO
[2019-12-09 18:55] VITALS: BP 87/53
[2019-12-09 19:48] VITALS: BP 96/59
[2019-12-10] MEDS: LACTATED RINGERS 1,000 ML IV SCH (02:23)
[2019-12-10 03:04] VITALS: BP 95/59
[2019-12-10 05:04] LABS: ANION GAP 3 mmol/L (5-15); CALCIUM 8.2 mg/dL (8.5-10.1); CHLORIDE 111 mmol/L (98-107)
[2019-12-10 05:05] LABS: CREATININE 0.95 mg/dL (0.55-1.02)
[2019-12-10 05:27] LABS: MEAN CORPUSCULAR HEMOGLOBIN 29.2 pg (27.0-34.8); MEAN PLATELET VOLUME 9.1 fL (7.4-10.4); PLATELET COUNT 363 x10^3/uL (130-400); RED BLOOD COUNT 2.61 x10^6/uL (3.82-5.3); RED CELL DISTRIBUTION WIDTH 20.1 % (9.6-15.2)
[2019-12-10] MEDS: OMEPRAZOLE 20 MG CAPSULE.DR PO SCH ×2 (05:52→17:06)
[2019-12-10 05:54] LABS: MD YES
[2019-12-10] MEDS: OXYcodone IR 5MG TABLET PO PRN ×4 (05:55→23:19)
[2019-12-10 05:56] LABS: BASOS#(MANUAL) 0.08 x10^3/uL (0-0.1); BASOS% (MANUAL) 1 % (0-1); EOS#(MANUAL) 0.08 x10^3/uL (0.0-0.4); EOS% (MANUAL) 1 % (1-7); LYMPH#(MANUAL) 0.84 x10^3/uL (1-3.4); LYMPHS% (MANUAL) 10 % (22-44); MONOS#(MANUAL) 0.92 x10^3/uL (0.3-2.7); MONOS% (MANUAL) 11 % (2-9); SEG#(MANUAL) 6.47 x10^3/uL (1.8-6.8); SEGS% (MANUAL) 77 % (42-75)
[2019-12-10 05:57] LABS: ANISOCYTOSIS 1+; TARGET CELLS 1+
[2019-12-10 05:58] LABS: <PLATELET ESTIMATE> ADEQUATE; <PLT MORPHOLOGY> NORMAL PLT MORPH; HYPOCHROMIA 1+; OVALOCYTES 1+
[2019-12-10 06:47] VITALS: BP 99/64
[2019-12-10] MEDS: POLYETHYLENE GLYCOL 17 GM PACKET PO SCH ×2 (09:00→20:54)
[2019-12-10] MEDS: SENNOSIDES 8.6 MG TABLET PO SCH ×2 (09:00→20:54)
[2019-12-10] MEDS: SENNA/DOCUSATE TABLET PO SCH (09:51)
[2019-12-10] MEDS: CEFTRIAXONE PMX 1GM/50ML 50 ML IV SCH (09:51)
[2019-12-10] MEDS: GABAPENTIN 300 MG CAPSULE PO SCH ×3 (09:51→20:54)
[2019-12-10 13:22] VITALS: BP 113/66
[2019-12-10] MEDS ORDERED: AMPICILLIN/SULBACTAM 1,500 MG in SODIUM CHLORIDE 0.9% 50 ML IV SCH (16:00)
[2019-12-10 19:17] VITALS: BP 100/64
[2019-12-10 23:14] LABS: INTERNATIONAL NORMALIZED RATIO 0.9 (0.93-1.1); PROTHROMBIN TIME 9.3 Seconds (9.6-11.5)
[2019-12-10 23:38] VITALS: BP 106/69
[2019-12-10 23:58] VITALS: BP 105/65
[2019-12-11 00:47] VITALS: BP 102/62
[2019-12-11 02:10] VITALS: BP 98/60
[2019-12-11 03:10] VITALS: BP 111/69
[2019-12-11 04:40] LABS: ANION GAP 3 mmol/L (5-15); CALCIUM 7.9 mg/dL (8.5-10.1); CHLORIDE 110 mmol/L (98-107)
[2019-12-11 04:42] LABS: ALANINE AMINOTRANSFERASE 14 U/L (12-78); ALKALINE PHOSPHATASE 35 U/L (45-117); BILIRUBIN,TOTAL 0.8 mg/dL (0.2-1.0); CREATININE 0.78 mg/dL (0.55-1.02); TOTAL PROTEIN 5.4 g/dL (6.4-8.2)
[2019-12-11 05:07] LABS: MEAN CORPUSCULAR HEMOGLOBIN 29.6 pg (27.0-34.8); MEAN CORPUSCULAR HGB CONC 31.5 g/dL (32.4-35.8); MEAN PLATELET VOLUME 8.8 fL (7.4-10.4); PLATELET COUNT 410 x10^3/uL (130-400); RED BLOOD COUNT 2.73 x10^6/uL (3.82-5.3); RED CELL DISTRIBUTION WIDTH 18.5 % (9.6-15.2)
[2019-12-11 06:04] LABS: BASOPHILS # (AUTO) 0.01 x10^3/uL (0-0.1); BASOPHILS % (AUTO) 0 % (0-1); EOSINOPHILS # (AUTO) 0.09 x10^3/uL (0-0.4); EOSINOPHILS % (AUTO) 1 % (1-7); LYMPHOCYTES # (AUTO) 1.16 x10^3/uL (1-3.4); LYMPHOCYTES % (AUTO) 15 % (22-44); MD SCAN; MONOCYTES # (AUTO) 0.62 x10^3/uL (0.2-0.8); MONOCYTES % (AUTO) 8 % (2-9); NEUTROPHILS # (AUTO) 5.64 x10^3/uL (1.8-6.8); NEUTROPHILS % (AUTO) 75 % (42-75)
[2019-12-11] MEDS: OMEPRAZOLE 20 MG CAPSULE.DR PO SCH ×2 (06:13→16:52)
[2019-12-11 06:43] VITALS: BP 98/62
[2019-12-11] MEDS: SENNOSIDES 8.6 MG TABLET PO SCH ×2 (08:15→19:53)
[2019-12-11] MEDS: SENNA/DOCUSATE TABLET PO SCH (08:15)
[2019-12-11] MEDS: GABAPENTIN 300 MG CAPSULE PO SCH ×3 (08:15→19:53)
[2019-12-11] MEDS: POLYETHYLENE GLYCOL 17 GM PACKET PO SCH ×2 (08:15→19:53)
[2019-12-11] MEDS: OXYcodone IR 5MG TABLET PO PRN ×3 (08:16→19:53)
[2019-12-11 12:01] VITALS: BP 112/73
[2019-12-11 19:14] VITALS: BP 99/62
[2019-12-12 01:19] VITALS: BP 110/71
[2019-12-12 05:54] LABS: MEAN CORPUSCULAR HEMOGLOBIN 28.8 pg (27.0-34.8); MEAN CORPUSCULAR HGB CONC 30.9 g/dL (32.4-35.8); PLATELET COUNT 443 x10^3/uL (130-400); RED BLOOD COUNT 2.61 x10^6/uL (3.82-5.3); RED CELL DISTRIBUTION WIDTH 18.2 % (9.6-15.2)
[2019-12-12 06:07] LABS: ANISOCYTOSIS 1+; BASOPHILS # (AUTO) 0.01 x10^3/uL (0-0.1); BASOPHILS % (AUTO) 0 % (0-1); EOSINOPHILS # (AUTO) 0.12 x10^3/uL (0-0.4); EOSINOPHILS % (AUTO) 2 % (1-7); HYPOCHROMIA 2+; LYMPHOCYTES % (AUTO) 28 % (22-44); MD MORPH REVIEW ONLY; MONOCYTES # (AUTO) 0.58 x10^3/uL (0.2-0.8); MONOCYTES % (AUTO) 11 % (2-9); NEUTROPHILS # (AUTO) 3.21 x10^3/uL (1.8-6.8); NEUTROPHILS % (AUTO) 59 % (42-75)
[2019-12-12] MEDS: OMEPRAZOLE 20 MG CAPSULE.DR PO SCH (06:07)
[2019-12-12 06:08] LABS: <PLATELET ESTIMATE> INCREASED; MICROCYTOSIS 1+; POLYCHROMASIA 1+
[2019-12-12 06:09] LABS: <PLT MORPHOLOGY> NORMAL PLT MORPH
[2019-12-12] MEDS: OXYcodone IR 5MG TABLET PO PRN ×2 (06:22→11:11)
[2019-12-12 07:34] VITALS: BP 122/80
[2019-12-12] MEDS ORDERED: CELE200C PO (09:54)
[2019-12-12] MEDS ORDERED: GABA300C PO (09:54)
[2019-12-12] MEDS: GABAPENTIN 300 MG CAPSULE PO SCH (10:22)
[2019-12-12] MEDS: SENNA/DOCUSATE TABLET PO SCH (10:23)
[2019-12-12] MEDS: POLYETHYLENE GLYCOL 17 GM PACKET PO SCH (10:23)
[2019-12-12] MEDS: SENNOSIDES 8.6 MG TABLET PO SCH (10:23)
[2019-12-12] MEDS ORDERED: OXYC15TA75 PO (10:50)
== END 2019-12-12 12:30 | disposition home or self-care (01) | DRG 749 ==
LOC: ED 14:03 → EDIP 16:56 → SUATTDRO 17:01 → 4WST 18:20 → DCLOUNGE 12-12 12:17
PROVIDERS: ADMIT Hospitalist; ATTEND Hospitalist
PROC: 30233N1 Transfusion of Nonautologous Red Blood Cells into Peripheral Vein, Percutaneous Approach (ICD-10-PCS; 2019-12-04)
PROC: 04LF3DU Occlusion of Left Uterine Artery with Intraluminal Device, Percutaneous Approach (ICD-10-PCS; principal; 2019-12-06)
PROC: 04LE3DT Occlusion of Right Uterine Artery with Intraluminal Device, Percutaneous Approach (ICD-10-PCS; 2019-12-06)
DX: N93.8 Other specified abnormal uterine and vaginal bleeding (principal); N17.0 Acute kidney failure with tubular necrosis; D62 Acute posthemorrhagic anemia; E87.2 Acidosis; F12.10 Cannabis abuse, uncomplicated; D50.9 Iron deficiency anemia, unspecified; E87.6 Hypokalemia; D25.1 Intramural leiomyoma of uterus; Y90.6 Blood alcohol level of 120-199 mg/100 ml; F10.229 Alcohol dependence with intoxication, unspecified; Z80.8 Family history of malignant neoplasm of other organs or systems; Z83.3 Family history of diabetes mellitus; Z87.891 Personal history of nicotine dependence; Z90.710 Acquired absence of both cervix and uterus
CPT/HCPCS: 36415; 96361; 96374; 96375; 96376; 99285; J3490; 36246; 36430; 37243; 37244; 72197; 76830; 80048; 80053; 80307; 81001; 83690; 83735; 84703; 85014; 85018; 85025; 85610; 85730; 86850; 86900; 86923; 87086; 93005; 99156; 99157; C1889; C1894; G0378; J0696; J1756; J2250; J2270; J2405; J3010; J3480; J7060; Q0162; Q9966; A9575; C1751; C1760; C1769; J1200; J2310; J7030; J7040; J7120; P9016

== ENCOUNTER 2019-12-27 14:44 | Inpatient (IN) | payer OTHER ==
[~2019-12-27] VITALS: Ht 167.6 cm; Wt 62.5 kg
[~2019-12-27 14:44] MED LIST changes: +CELE200C PO; +GABA300C PO; +OXYC15TA75 PO
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
[2019-12-27] MEDS ORDERED: SODIUM CHLORIDE FLUSH 10ML SYR IVF ONE (15:30)
[2019-12-27] MEDS ORDERED: PIPERACILLIN/TAZO/PMX 4.5GM 100 ML IVPB ONE (15:30)
[2019-12-27] MEDS ORDERED: ONDANSETRON 2MG/ML, 2ML IVPush ONE (15:30)
[2019-12-27] MEDS ORDERED: VANCOMYCIN PER PHARMACY MC ONE (15:30)
[2019-12-27] MEDS ORDERED: ONDANSETRON 2MG/ML, 2ML ONE (15:35)
[2019-12-27] MEDS ORDERED: MORPHINE SULFATE 4 MG/ML, 1ML ONE ×2 (15:35→20:28)
[2019-12-27] MEDS: MORPHINE SULFATE 4 MG/ML, 1ML IV PRN ×2 (15:45→21:00)
--- NOTE | 2019-12-27 15:45 | NUR ---
IV STARTED. BLOOD CULTURES DRAWN AT THIS TIME
[2019-12-27 16:00] LABS: BASOPHILS % (AUTO) 1 % (0-1); EOSINOPHILS % (AUTO) 1 % (1-7); LYMPHOCYTES % (AUTO) 10 % (22-44); MEAN CORPUSCULAR HEMOGLOBIN 28.3 pg (27.0-34.8); MEAN CORPUSCULAR HGB CONC 31.8 g/dL (32.4-35.8); MONOCYTES % (AUTO) 9 % (2-9); NEUTROPHILS % (AUTO) 80 % (42-75); PLATELET COUNT 376 x10^3/uL (130-400); RED BLOOD COUNT 3.49 x10^6/uL (3.82-5.3); RED CELL DISTRIBUTION WIDTH 18.1 % (9.6-15.2)
[2019-12-27] MEDS ORDERED: VANCOMYCIN 1,500 MG in SODIUM CHLORIDE 0.9% 250 ML IV ONE ×2 (16:00→19:00)
[2019-12-27 16:03] LABS: MD NO
[2019-12-27 16:11] LABS: ALANINE AMINOTRANSFERASE 13 U/L (12-78); ALBUMIN 2.5 g/dL (3.4-5.0); ANION GAP 8 mmol/L (5-15); CALCIUM 8.7 mg/dL (8.5-10.1); CHLORIDE 112 mmol/L (98-107); CREATININE 0.99 mg/dL (0.55-1.02)
[2019-12-27 16:13] LABS: ALKALINE PHOSPHATASE 82 U/L (45-117); BILIRUBIN,TOTAL 0.4 mg/dL (0.2-1.0); TOTAL PROTEIN 7.2 g/dL (6.4-8.2)
--- NOTE | 2019-12-27 16:16 | NUR ---
PT RESTING IN [facility]. IV FLUIDS INFUSING. PT ON PHONE. NAD. ROCHA
[2019-12-27] MEDS ORDERED: NS + 40MEQ KCL 1,000 ML IV ONE (17:53)
[2019-12-27] MEDS: NS + 40MEQ KCL 1,000 ML IV SCH (18:00)
[2019-12-27] MEDS ORDERED: SODIUM CHLORIDE FLUSH 10ML SYR IVF PRN (18:00)
[2019-12-27] MEDS ORDERED: VANCOMYCIN PER PHARMACY MC PRN (19:00)
[2019-12-27] MEDS ORDERED: ONDANSETRON ODT 4 MG PO PRN (20:30)
[2019-12-27] MEDS ORDERED: ACETAMINOPHEN 325 MG TABLET PO PRN (20:30)
[2019-12-27] MEDS ORDERED: MELATONIN 5 MG TABLET PO PRN (20:30)
[2019-12-27] MEDS ORDERED: DOCUSATE 100 MG CAPSULE PO PRN (20:30)
[2019-12-27 21:03] LABS: HCT (SEDRATE) 28.3 % (34.6-47.8)
--- NOTE | 2019-12-27 22:31 | NUR ---
Placed on hospital bed for comfort. Bed low, side rails up, call perez within reach
[2019-12-28] MEDS ORDERED: PIPERACILLIN/TAZO/PMX 3.375GM 50 ML ONE (00:31)
--- NOTE | 2019-12-28 00:31 | NUR ---
Report given to Christina WISEMAN
[2019-12-28] MEDS ORDERED: NS + 40MEQ KCL 1,000 ML IV ONE (00:32)
[2019-12-28 01:00] VITALS: BP 103/69
[2019-12-28] MEDS: NS + 40MEQ KCL 1,000 ML IV SCH ×3 (01:00→06:38)
[2019-12-28] MEDS: KETOROLAC 30 MG/1 ML IV PRN ×4 (01:09→20:17)
[2019-12-28] MEDS: HYDROcodone/APAP 5/325 TABLET PO PRN ×5 (01:09→21:59)
[2019-12-28] MEDS: PIPERACILLIN/TAZO/PMX 3.375GM 50 ML IV SCH ×4 (01:14→20:00)
[2019-12-28 02:02] VITALS: BP 103/69
[2019-12-28 05:42] LABS: BASOPHILS % (AUTO) 1 % (0-1); EOSINOPHILS % (AUTO) 2 % (1-7); LYMPHOCYTES % (AUTO) 16 % (22-44); MEAN CORPUSCULAR HEMOGLOBIN 28.6 pg (27.0-34.8); MEAN PLATELET VOLUME 9.1 fL (7.4-10.4); MONOCYTES % (AUTO) 13 % (2-9); NEUTROPHILS % (AUTO) 69 % (42-75); PLATELET COUNT 311 x10^3/uL (130-400); RED BLOOD COUNT 2.84 x10^6/uL (3.82-5.3); RED CELL DISTRIBUTION WIDTH 17.6 % (9.6-15.2)
[2019-12-28 05:46] LABS: MD NO
[2019-12-28 05:48] LABS: CHLORIDE 113 mmol/L (98-107)
[2019-12-28 05:53] LABS: ANION GAP 4 mmol/L (5-15); CALCIUM 7.8 mg/dL (8.5-10.1); CREATININE 0.94 mg/dL (0.55-1.02)
[2019-12-28 07:37] VITALS: BP 96/67
[2019-12-28] MEDS ORDERED: LORazepam 2 MG/ML, 1ML ONE (07:48)
[2019-12-28] MEDS ORDERED: LORazepam 2 MG/ML, 1ML IVPush PRN (08:00)
[2019-12-28] MEDS ORDERED: GADOTERATE 7.5 MMOL/15 ML SYR ONE (08:29)
[2019-12-28] MEDS: HEPARIN 5,000 UNITS/ML, 1ML SQ SCH ×2 (09:00→17:00)
[2019-12-28] MEDS: CLINDAMYCIN PMX 600MG/50ML 50 ML IV SCH ×2 (11:32→17:30)
[2019-12-28 12:40] VITALS: BP 100/63
[2019-12-28] MEDS ORDERED: PROMETHAZINE 25 MG/ML, 1ML IVPush PRN ×2 (15:30→17:00)
[2019-12-28] MEDS ORDERED: OXYcodone 5 MG/5 ML ORAL.SOL UDC PO PRN ×2 (15:30→17:00)
[2019-12-28] MEDS ORDERED: EPHEDRINE 50 MG/ML, 1ML IVPush PRN ×2 (15:30→17:00)
[2019-12-28] MEDS ORDERED: ACETAMINOPHEN 325 MG TABLET PO PRN (15:30)
[2019-12-28] MEDS ORDERED: LABETALOL 5MG/ML, 20ML IV PRN (15:30)
[2019-12-28] MEDS ORDERED: MEPERIDINE/PF 25MG/0.5ML IVPush PRN ×2 (15:30→17:00)
[2019-12-28] MEDS ORDERED: hydrALAzine 20 MG/ML, 1ML IV PRN (15:30)
[2019-12-28] MEDS ORDERED: ONDANSETRON 2MG/ML, 2ML IVPush PRN ×2 (15:30→17:00)
[2019-12-28 16:01] LABS: HCG UR SG > 1.045 (1.003-1.030)
[2019-12-28 16:09] LABS: AMPHETAMINE SCREEN, URINE Negative (Negative); BARBITURATE SCREEN, URINE Negative (Negative); BENZODIAZEPINE SCREEN, URINE Negative (Negative); CANNABINOID SCREEN, URINE Positive (Negative); COCAINE SCREEN, URINE Negative (Negative); METHADONE SCREEN, URINE Negative (Negative); OPIATE SCREEN, URINE Positive (Negative)
[2019-12-28] MEDS ORDERED: MIDAZOLAM 1 MG/ML, 2ML ONE ×2 (16:20→16:43)
[2019-12-28] MEDS ORDERED: FENTANYL PF 100 MCG/2ML ONE ×3 (16:20→18:01)
[2019-12-28] MEDS ORDERED: PROPOFOL 50 ML ONE (16:55)
[2019-12-28] MEDS ORDERED: FENTANYL PF 250 MCG/5ML ONE (16:56)
[2019-12-28] MEDS ORDERED: morphine SULFATE 10 MG/ML, 1ML IVPush PRN (17:00)
[2019-12-28] MEDS ORDERED: FENTANYL PF 100 MCG/2ML IV PRN (17:00)
[2019-12-28] MEDS ORDERED: DIAZEPAM 5 MG/ML, 2ML IVPush PRN (17:00)
[2019-12-28] MEDS ORDERED: PHARMACOKINETIC MONITORING MC PRN (17:00)
[2019-12-28] MEDS ORDERED: PHARMACOKINETIC CONSULTATION MC ONE (17:00)
[2019-12-28] MEDS ORDERED: DIPHENHYDRAMINE 50 MG/ML, 1ML IVPush PRN (17:00)
[2019-12-28] MEDS: VANCOMYCIN 1,200 MG in SODIUM CHLORIDE 0.9% 250 ML IV SCH (17:00)
[2019-12-28] MEDS ORDERED: EPHEDRINE 50 MG/ML, 1ML IM PRN (17:00)
[2019-12-28] MEDS ORDERED: ONDANSETRON 2MG/ML, 2ML ONE (17:00)
[2019-12-28] MEDS ORDERED: PROPOFOL 10 MG/ML, 20ML ONE (17:00)
[2019-12-28] MEDS ORDERED: OXYcodone 5 MG/5 ML ORAL.SOL UDC ONE (17:28)
[2019-12-28] MEDS ORDERED: HYDROmorphone 1 MG/ML, 1ML INJ ONE ×2 (17:28→17:54)
[2019-12-28] MEDS: FENTANYL PF 100 MCG/2ML IV PRN ×3 (17:31→18:01)
[2019-12-28] MEDS: HYDROmorphone 1 MG/ML, 1ML INJ IVPush PRN ×3 (17:47→18:03)
[2019-12-28] MEDS ORDERED: MEPERIDINE/PF 25MG/ML,1ML ONE (18:12)
[2019-12-28 20:28] VITALS: BP 138/91
[2019-12-29 00:05] VITALS: BP 101/70
[2019-12-29] MEDS: CLINDAMYCIN PMX 600MG/50ML 50 ML IV SCH ×5 (00:10→23:54)
[2019-12-29] MEDS: PIPERACILLIN/TAZO/PMX 3.375GM 50 ML IV SCH ×2 (00:59→07:56)
[2019-12-29] MEDS: HEPARIN 5,000 UNITS/ML, 1ML SQ SCH ×3 (00:59→16:47)
[2019-12-29] MEDS: KETOROLAC 30 MG/1 ML IV PRN ×4 (02:16→23:35)
[2019-12-29] MEDS: HYDROcodone/APAP 5/325 TABLET PO PRN ×5 (03:00→20:52)
[2019-12-29 04:19] VITALS: BP 109/73
[2019-12-29] MEDS: VANCOMYCIN 1,200 MG in SODIUM CHLORIDE 0.9% 250 ML IV SCH ×2 (04:39→16:51)
[2019-12-29 05:54] LABS: ALANINE AMINOTRANSFERASE 14 U/L (12-78); ALBUMIN 2.1 g/dL (3.4-5.0); ANION GAP 6 mmol/L (5-15); BASOPHILS % (AUTO) 1 % (0-1); CALCIUM 8.3 mg/dL (8.5-10.1); CHLORIDE 112 mmol/L (98-107); EOSINOPHILS % (AUTO) 2 % (1-7); LYMPHOCYTES % (AUTO) 10 % (22-44); MEAN CORPUSCULAR HEMOGLOBIN 28.4 pg (27.0-34.8); MEAN CORPUSCULAR HGB CONC 31.5 g/dL (32.4-35.8); MEAN PLATELET VOLUME 9.3 fL (7.4-10.4); MONOCYTES % (AUTO) 12 % (2-9); NEUTROPHILS % (AUTO) 75 % (42-75); PLATELET COUNT 301 x10^3/uL (130-400); RED BLOOD COUNT 3.01 x10^6/uL (3.82-5.3); RED CELL DISTRIBUTION WIDTH 17.4 % (9.6-15.2)
[2019-12-29 05:56] LABS: ALKALINE PHOSPHATASE 62 U/L (45-117); BILIRUBIN,TOTAL 0.6 mg/dL (0.2-1.0)
[2019-12-29 06:04] LABS: MD NO
[2019-12-29 06:38] VITALS: BP 117/81
[2019-12-29 07:33] VITALS: BP 173/79
[2019-12-29 09:07] LABS: % IRON SATURATION 8 % (20-55); IRON LEVEL 22 mcg/dL (50-170); TOTAL IRON BINDING CAPACITY 275 mcg/dL (250-450)
[2019-12-29 09:11] LABS: CREATINE KINASE, TOTAL 23 U/L (26-192)
[2019-12-29 13:10] VITALS: BP 104/70
[2019-12-29] MEDS: CEFAZOLIN 2,000 MG in SODIUM CHLORIDE 0.9% 50 ML IV SCH ×2 (14:33→22:43)
[2019-12-29 20:09] VITALS: BP 114/79
[2019-12-30] MEDS: HEPARIN 5,000 UNITS/ML, 1ML SQ SCH ×3 (01:01→18:31)
[2019-12-30] MEDS: HYDROcodone/APAP 5/325 TABLET PO PRN ×5 (01:01→20:26)
[2019-12-30 03:41] VITALS: BP 128/90
[2019-12-30] MEDS: VANCOMYCIN 1,200 MG in SODIUM CHLORIDE 0.9% 250 ML IV SCH (04:49)
[2019-12-30 05:36] LABS: BASOPHILS % (AUTO) 1 % (0-1); EOSINOPHILS % (AUTO) 2 % (1-7); LYMPHOCYTES % (AUTO) 27 % (22-44); MEAN CORPUSCULAR HEMOGLOBIN 28.7 pg (27.0-34.8); MEAN CORPUSCULAR HGB CONC 31.9 g/dL (32.4-35.8); MEAN PLATELET VOLUME 9.3 fL (7.4-10.4); MONOCYTES % (AUTO) 22 % (2-9); NEUTROPHILS % (AUTO) 49 % (42-75); PLATELET COUNT 293 x10^3/uL (130-400); RED BLOOD COUNT 2.94 x10^6/uL (3.82-5.3); RED CELL DISTRIBUTION WIDTH 17.5 % (9.6-15.2)
[2019-12-30 05:37] LABS: MD NO
[2019-12-30] MEDS: CLINDAMYCIN PMX 600MG/50ML 50 ML IV SCH ×4 (06:07→23:49)
[2019-12-30 07:15] VITALS: BP 124/82
[2019-12-30] MEDS: CEFAZOLIN PMX 2GM/50ML 50 ML IVPB SCH ×2 (07:49→20:07)
[2019-12-30] MEDS: FERROUS SULFATE 325 MG TABLET PO SCH (07:49)
[2019-12-30] MEDS: KETOROLAC 30 MG/1 ML IV PRN ×2 (07:56→20:26)
[2019-12-30 13:23] VITALS: BP 135/89
[2019-12-30] MEDS ORDERED: CHLORHEXIDINE 15 ML UDC ONE (14:50)
[2019-12-30] MEDS ORDERED: CHLORHEXIDINE 15 ML UDC MM STA (14:50)
[2019-12-30] MEDS ORDERED: MIDAZOLAM 1 MG/ML, 2ML ONE (15:45)
[2019-12-30] MEDS ORDERED: FENTANYL PF 250 MCG/5ML ONE (15:45)
[2019-12-30] MEDS ORDERED: PROPOFOL 10 MG/ML, 20ML ONE ×2 (15:47→16:19)
[2019-12-30] MEDS ORDERED: HYDROmorphone 1 MG/ML, 1ML INJ IVPush PRN (16:00)
[2019-12-30] MEDS ORDERED: ACETAMINOPHEN 325 MG TABLET PO PRN (16:00)
[2019-12-30] MEDS ORDERED: LABETALOL 5MG/ML, 20ML IV PRN (16:00)
[2019-12-30] MEDS ORDERED: ONDANSETRON 2MG/ML, 2ML IVPush PRN (16:00)
[2019-12-30] MEDS ORDERED: morphine SULFATE 10 MG/ML, 1ML IVPush PRN (16:00)
[2019-12-30] MEDS ORDERED: hydrALAzine 20 MG/ML, 1ML IV PRN (16:00)
[2019-12-30] MEDS ORDERED: OXYcodone 5 MG/5 ML ORAL.SOL UDC PO PRN (16:00)
[2019-12-30] MEDS ORDERED: MEPERIDINE/PF 25MG/0.5ML IVPush PRN (16:00)
[2019-12-30] MEDS ORDERED: DAKIN'S SOLUTION 1/4 STRENGTH 1,000 ML IRRIG SOLN EXT ONE (16:26)
[2019-12-30] MEDS ORDERED: FENTANYL PF 100 MCG/2ML ONE (16:40)
[2019-12-30] MEDS: FENTANYL PF 100 MCG/2ML IV PRN ×2 (16:40→16:45)
[2019-12-30] MEDS ORDERED: OXYcodone 5 MG/5 ML ORAL.SOL UDC ONE (16:41)
[2019-12-30] MEDS ORDERED: HYDROmorphone 1 MG/ML, 1ML INJ ONE (16:41)
[2019-12-30] MEDS: HYDROmorphone 1 MG/ML, 1ML INJ IVPush PRN ×2 (17:00→17:10)
[2019-12-30] MEDS: MORPHINE SULFATE 4 MG/ML, 1ML IVPush PRN (18:30)
[2019-12-30 20:57] VITALS: BP 151/84
[2019-12-31] MEDS: MORPHINE SULFATE 4 MG/ML, 1ML IVPush PRN ×4 (00:12→18:11)
[2019-12-31 00:37] VITALS: BP 124/83
[2019-12-31] MEDS: HEPARIN 5,000 UNITS/ML, 1ML SQ SCH ×3 (01:59→16:27)
[2019-12-31] MEDS: CLINDAMYCIN PMX 600MG/50ML 50 ML IV SCH ×4 (03:00→16:27)
[2019-12-31] MEDS: CEFAZOLIN PMX 2GM/50ML 50 ML IVPB SCH ×3 (04:25→21:30)
[2019-12-31 06:54] VITALS: BP 142/95
[2019-12-31] MEDS: FERROUS SULFATE 325 MG TABLET PO SCH (08:14)
[2019-12-31] MEDS: KETOROLAC 30 MG/1 ML IV PRN ×2 (10:33→21:41)
[2019-12-31] MEDS: HYDROcodone/APAP 5/325 TABLET PO PRN (10:34)
[2019-12-31] MEDS: IRON SUCROSE COMPLEX 100MG/5ML IV SCH (11:06)
[2019-12-31] MEDS: DAKIN'S SOLUTION 1/4 STRENGTH 1,000 ML IRRIG SOLN EXT SCH (11:07)
[2019-12-31] MEDS: GABAPENTIN 300 MG CAPSULE PO SCH ×3 (12:25→21:30)
[2019-12-31 14:06] VITALS: BP 114/77
[2019-12-31 19:22] VITALS: BP 128/83
[2019-12-31] MEDS: HYDROcodone/APAP 10/325 MG TABLET PO PRN (21:42)
[2020-01-01] MEDS: MORPHINE SULFATE 4 MG/ML, 1ML IVPush PRN ×3 (00:19→22:47)
[2020-01-01 00:32] VITALS: BP 107/67
[2020-01-01] MEDS: CLINDAMYCIN PMX 600MG/50ML 50 ML IV SCH ×4 (01:20→22:55)
[2020-01-01 02:00] VITALS: BP 119/81
[2020-01-01] MEDS: HEPARIN 5,000 UNITS/ML, 1ML SQ SCH ×3 (02:00→19:30)
[2020-01-01] MEDS: CEFAZOLIN PMX 2GM/50ML 50 ML IVPB SCH ×2 (04:00→15:53)
[2020-01-01 06:07] LABS: BASOPHILS % (AUTO) 2 % (0-1); EOSINOPHILS % (AUTO) 2 % (1-7); LYMPHOCYTES % (AUTO) 32 % (22-44); MEAN CORPUSCULAR HEMOGLOBIN 28.4 pg (27.0-34.8); MEAN PLATELET VOLUME 9.1 fL (7.4-10.4); MONOCYTES % (AUTO) 24 % (2-9); NEUTROPHILS % (AUTO) 41 % (42-75); PLATELET COUNT 358 x10^3/uL (130-400); RED BLOOD COUNT 3.44 x10^6/uL (3.82-5.3); RED CELL DISTRIBUTION WIDTH 17.9 % (9.6-15.2)
[2020-01-01 06:17] LABS: ALBUMIN 2.3 g/dL (3.4-5.0); CHLORIDE 111 mmol/L (98-107)
[2020-01-01 06:22] LABS: ALANINE AMINOTRANSFERASE 9 U/L (12-78); ALKALINE PHOSPHATASE 63 U/L (45-117); ANION GAP 5 mmol/L (5-15); CALCIUM 8.6 mg/dL (8.5-10.1); CREATININE 1.08 mg/dL (0.55-1.02); TOTAL PROTEIN 6.5 g/dL (6.4-8.2)
[2020-01-01 06:24] LABS: BILIRUBIN,TOTAL < 0.1 mg/dL (0.2-1.0)
[2020-01-01 07:20] VITALS: BP 125/68
[2020-01-01 07:49] LABS: MD SCAN
[2020-01-01] MEDS: GABAPENTIN 300 MG CAPSULE PO SCH ×3 (09:00→20:44)
[2020-01-01] MEDS: DAKIN'S SOLUTION 1/4 STRENGTH 1,000 ML IRRIG SOLN EXT SCH (09:00)
[2020-01-01] MEDS: IRON SUCROSE COMPLEX 100MG/5ML IV SCH (09:00)
[2020-01-01] MEDS: LACTATED RINGERS 1,000 ML IV SCH (10:45)
[2020-01-01 12:41] VITALS: BP 134/89
[2020-01-01] MEDS ORDERED: FENTANYL PF 100 MCG/2ML ONE ×3 (13:13→15:06)
[2020-01-01] MEDS ORDERED: MIDAZOLAM 1 MG/ML, 2ML ONE (13:13)
[2020-01-01] MEDS ORDERED: CHLORHEXIDINE 15 ML UDC ONE (13:35)
[2020-01-01] MEDS ORDERED: PROMETHAZINE 25 MG/ML, 1ML IVPush PRN (14:00)
[2020-01-01] MEDS ORDERED: HYDROcodone/APAP 7.5-325MG/15ML UDC PO PRN (14:00)
[2020-01-01] MEDS ORDERED: OXYcodone 5 MG/5 ML ORAL.SOL UDC PO PRN (14:00)
[2020-01-01] MEDS ORDERED: HYDROmorphone 1 MG/ML, 1ML INJ IVPush PRN (14:00)
[2020-01-01] MEDS ORDERED: CHLORHEXIDINE 15 ML UDC MM ONE (14:00)
[2020-01-01] MEDS: FENTANYL PF 100 MCG/2ML IV PRN ×3 (14:39→15:08)
[2020-01-01] MEDS ORDERED: ACETAMINOPHEN 650 MG/20.3 ML UDC ONE (14:48)
[2020-01-01] MEDS ORDERED: OXYcodone 5 MG/5 ML ORAL.SOL UDC ONE ×2 (14:49→14:53)
[2020-01-01] MEDS ORDERED: KETOROLAC 30 MG/1 ML ONE (14:49)
[2020-01-01] MEDS: KETOROLAC 30 MG/1 ML IV PRN (14:52)
[2020-01-01] MEDS ORDERED: PROPOFOL 10 MG/ML, 20ML ONE (16:39)
[2020-01-01 19:33] VITALS: BP 151/93
[2020-01-01] MEDS: HYDROcodone/APAP 10/325 MG TABLET PO PRN (21:33)
[2020-01-02 00:48] VITALS: BP 111/72
[2020-01-02] MEDS: HYDROcodone/APAP 10/325 MG TABLET PO PRN ×3 (02:42→15:19)
[2020-01-02] MEDS: HEPARIN 5,000 UNITS/ML, 1ML SQ SCH ×3 (03:30→19:30)
[2020-01-02] MEDS: MORPHINE SULFATE 4 MG/ML, 1ML IVPush PRN ×5 (04:17→22:12)
[2020-01-02] MEDS: CLINDAMYCIN PMX 600MG/50ML 50 ML IV SCH ×4 (04:17→23:08)
[2020-01-02 07:09] VITALS: BP 115/75
[2020-01-02] MEDS: CEFAZOLIN PMX 2GM/50ML 50 ML IVPB SCH ×3 (07:53→15:19)
[2020-01-02] MEDS: IRON SUCROSE COMPLEX 100MG/5ML IV SCH (07:53)
[2020-01-02] MEDS: GABAPENTIN 300 MG CAPSULE PO SCH ×3 (07:53→22:12)
[2020-01-02] MEDS: DAKIN'S SOLUTION 1/4 STRENGTH 1,000 ML IRRIG SOLN EXT SCH (09:54)
[2020-01-02 12:32] VITALS: BP 123/82
[2020-01-02] MEDS: LACTATED RINGERS 1,000 ML IV SCH (13:32)
[2020-01-02 19:39] VITALS: BP 123/65
[2020-01-03] MEDS: CEFAZOLIN PMX 2GM/50ML 50 ML IVPB SCH ×3 (00:45→15:28)
[2020-01-03 01:32] VITALS: BP 113/75
[2020-01-03] MEDS: MORPHINE SULFATE 4 MG/ML, 1ML IVPush PRN ×3 (02:42→17:53)
[2020-01-03] MEDS: HEPARIN 5,000 UNITS/ML, 1ML SQ SCH ×3 (03:30→19:31)
[2020-01-03] MEDS: CLINDAMYCIN PMX 600MG/50ML 50 ML IV SCH ×4 (05:17→23:00)
[2020-01-03] MEDS ORDERED: IRON SUCROSE COMPLEX 100MG/5ML IV SCH (09:00)
[2020-01-03] MEDS: DAKIN'S SOLUTION 1/4 STRENGTH 1,000 ML IRRIG SOLN EXT SCH (09:00)
[2020-01-03] MEDS: GABAPENTIN 300 MG CAPSULE PO SCH ×3 (09:30→19:54)
[2020-01-03] MEDS: HYDROcodone/APAP 10/325 MG TABLET PO PRN ×3 (09:49→22:07)
[2020-01-03] MEDS: LACTATED RINGERS 1,000 ML IV SCH (14:07)
[2020-01-03 19:16] VITALS: BP 130/88
[2020-01-04] MEDS: CEFAZOLIN PMX 2GM/50ML 50 ML IVPB SCH ×3 (00:01→09:09)
[2020-01-04] MEDS: MORPHINE SULFATE 4 MG/ML, 1ML IVPush PRN ×4 (00:08→23:30)
[2020-01-04 01:46] VITALS: BP 112/71
[2020-01-04] MEDS: HEPARIN 5,000 UNITS/ML, 1ML SQ SCH ×3 (02:56→19:18)
[2020-01-04] MEDS: CLINDAMYCIN PMX 600MG/50ML 50 ML IV SCH (05:02)
[2020-01-04 06:02] LABS: BASOPHILS % (AUTO) 1 % (0-1); EOSINOPHILS % (AUTO) 3 % (1-7); LYMPHOCYTES % (AUTO) 26 % (22-44); MEAN CORPUSCULAR HEMOGLOBIN 28.3 pg (27.0-34.8); MEAN CORPUSCULAR HGB CONC 31.9 g/dL (32.4-35.8); MEAN PLATELET VOLUME 8.4 fL (7.4-10.4); MONOCYTES % (AUTO) 15 % (2-9); NEUTROPHILS % (AUTO) 54 % (42-75); PLATELET COUNT 531 x10^3/uL (130-400); RED BLOOD COUNT 3.47 x10^6/uL (3.82-5.3); RED CELL DISTRIBUTION WIDTH 17.7 % (9.6-15.2)
[2020-01-04 06:04] LABS: HCT (SEDRATE) 31.2 % (34.6-47.8)
[2020-01-04 06:22] LABS: MD NO
[2020-01-04 06:23] LABS: ALBUMIN 2.5 g/dL (3.4-5.0); ANION GAP 5 mmol/L (5-15); CALCIUM 8.8 mg/dL (8.5-10.1); CHLORIDE 106 mmol/L (98-107)
[2020-01-04 06:32] LABS: ALANINE AMINOTRANSFERASE 8 U/L (12-78); ALKALINE PHOSPHATASE 60 U/L (45-117); BILIRUBIN,TOTAL 0.2 mg/dL (0.2-1.0); C-REACTIVE PROTEIN, QUANT 1.45 mg/dL (0.02-0.49); CREATININE 0.94 mg/dL (0.55-1.02); TOTAL PROTEIN 6.8 g/dL (6.4-8.2)
[2020-01-04 07:15] VITALS: BP 122/80
[2020-01-04] MEDS: LACTATED RINGERS 1,000 ML IV SCH ×2 (08:00→21:00)
[2020-01-04] MEDS: GABAPENTIN 300 MG CAPSULE PO SCH ×2 (08:34→19:49)
[2020-01-04] MEDS: HYDROcodone/APAP 10/325 MG TABLET PO PRN ×2 (08:34→19:49)
[2020-01-04] MEDS ORDERED: CHLORHEXIDINE 15 ML UDC ONE (08:55)
[2020-01-04] MEDS: DAKIN'S SOLUTION 1/4 STRENGTH 1,000 ML IRRIG SOLN EXT SCH (08:57)
[2020-01-04] MEDS ORDERED: CHLORHEXIDINE 15 ML UDC MM ONE (09:00)
[2020-01-04] MEDS ORDERED: FENTANYL PF 100 MCG/2ML ONE ×3 (09:27→10:20)
[2020-01-04] MEDS ORDERED: MIDAZOLAM 1 MG/ML, 2ML ONE (09:27)
[2020-01-04] MEDS ORDERED: PROPOFOL 10 MG/ML, 20ML ONE (09:29)
[2020-01-04] MEDS ORDERED: LABETALOL 5MG/ML, 20ML IV PRN (09:30)
[2020-01-04] MEDS ORDERED: PROMETHAZINE 25 MG/ML, 1ML IVPush PRN (09:30)
[2020-01-04] MEDS ORDERED: ALBUTEROL SULFATE 2.5 MG/3 ML NPPB PRN (09:30)
[2020-01-04] MEDS ORDERED: OXYcodone 5 MG/5 ML ORAL.SOL UDC PO PRN (09:30)
[2020-01-04] MEDS ORDERED: hydrALAzine 20 MG/ML, 1ML IV PRN (09:30)
[2020-01-04] MEDS ORDERED: LORazepam 2 MG/ML, 1ML IVPush PRN (09:30)
[2020-01-04] MEDS ORDERED: HYDROmorphone 1 MG/ML, 1ML INJ IVPush PRN (09:30)
[2020-01-04] MEDS ORDERED: MEPERIDINE/PF 25MG/0.5ML IVPush PRN (09:30)
[2020-01-04] MEDS ORDERED: ACETAMINOPHEN 325 MG TABLET PO PRN (09:30)
[2020-01-04] MEDS: FENTANYL PF 100 MCG/2ML IV PRN ×4 (10:01→10:40)
[2020-01-04] MEDS ORDERED: OXYcodone 5 MG/5 ML ORAL.SOL UDC ONE (10:07)
[2020-01-04 12:49] VITALS: BP 127/80
[2020-01-04] MEDS: AMPICILLIN/SULBACTAM 3 GM in SODIUM CHLORIDE 0.9% 100 ML IV SCH ×2 (13:25→19:48)
[2020-01-04 19:13] VITALS: BP 130/86
[2020-01-05 00:40] VITALS: BP 97/60
[2020-01-05] MEDS: AMPICILLIN/SULBACTAM 3 GM in SODIUM CHLORIDE 0.9% 100 ML IV SCH ×4 (01:20→20:06)
[2020-01-05] MEDS: HEPARIN 5,000 UNITS/ML, 1ML SQ SCH ×3 (03:48→20:06)
[2020-01-05] MEDS: MORPHINE SULFATE 4 MG/ML, 1ML IVPush PRN ×2 (04:41→18:05)
[2020-01-05] MEDS: HYDROcodone/APAP 10/325 MG TABLET PO PRN ×2 (06:29→14:46)
[2020-01-05 06:48] VITALS: BP 121/78
[2020-01-05] MEDS: GABAPENTIN 300 MG CAPSULE PO SCH ×3 (08:44→22:04)
[2020-01-05] MEDS: DAKIN'S SOLUTION 1/4 STRENGTH 1,000 ML IRRIG SOLN EXT SCH (09:00)
[2020-01-05 13:57] VITALS: BP 101/66
[2020-01-05 20:10] VITALS: BP 103/67
[2020-01-05] MEDS: LACTATED RINGERS 1,000 ML IV SCH (21:57)
[2020-01-06] MEDS: MORPHINE SULFATE 4 MG/ML, 1ML IVPush PRN ×3 (00:13→13:48)
[2020-01-06 00:42] VITALS: BP 110/71
[2020-01-06] MEDS: AMPICILLIN/SULBACTAM 3 GM in SODIUM CHLORIDE 0.9% 100 ML IV SCH ×4 (01:58→20:58)
[2020-01-06] MEDS: HEPARIN 5,000 UNITS/ML, 1ML SQ SCH ×3 (03:30→21:13)
[2020-01-06 07:45] VITALS: BP 119/81
[2020-01-06] MEDS: GABAPENTIN 300 MG CAPSULE PO SCH ×3 (08:39→21:06)
[2020-01-06] MEDS: HYDROcodone/APAP 10/325 MG TABLET PO PRN ×3 (08:39→21:06)
[2020-01-06] MEDS: DAKIN'S SOLUTION 1/4 STRENGTH 1,000 ML IRRIG SOLN EXT SCH (09:00)
[2020-01-06 13:56] VITALS: BP 106/65
[2020-01-06] MEDS: LACTATED RINGERS 1,000 ML IV SCH (15:39)
[2020-01-06 19:02] VITALS: BP 107/64
[2020-01-07] MEDS: HYDROcodone/APAP 10/325 MG TABLET PO PRN ×3 (01:17→19:51)
[2020-01-07 01:35] VITALS: BP 102/66
[2020-01-07] MEDS: HEPARIN 5,000 UNITS/ML, 1ML SQ SCH ×3 (03:30→19:30)
[2020-01-07] MEDS: AMPICILLIN/SULBACTAM 3 GM in SODIUM CHLORIDE 0.9% 100 ML IV SCH ×4 (03:46→22:22)
[2020-01-07] MEDS: MORPHINE SULFATE 4 MG/ML, 1ML IVPush PRN ×5 (04:22→22:28)
[2020-01-07] MEDS: LACTATED RINGERS 1,000 ML IV SCH (04:52)
[2020-01-07 09:08] VITALS: BP 122/78
[2020-01-07] MEDS: GABAPENTIN 300 MG CAPSULE PO SCH ×3 (09:33→19:51)
[2020-01-07 15:07] VITALS: BP 106/70
[2020-01-07 19:34] VITALS: BP 113/70
[2020-01-08 01:24] VITALS: BP 99/62
[2020-01-08] MEDS: HYDROcodone/APAP 10/325 MG TABLET PO PRN ×3 (01:36→15:01)
[2020-01-08] MEDS: AMPICILLIN/SULBACTAM 3 GM in SODIUM CHLORIDE 0.9% 100 ML IV SCH (03:00)
[2020-01-08] MEDS: MORPHINE SULFATE 4 MG/ML, 1ML IVPush PRN ×3 (03:00→13:32)
[2020-01-08] MEDS: HEPARIN 5,000 UNITS/ML, 1ML SQ SCH ×2 (03:24→11:30)
[2020-01-08 05:13] LABS: BASOPHILS % (AUTO) 1 % (0-1); EOSINOPHILS % (AUTO) 2 % (1-7); LYMPHOCYTES % (AUTO) 21 % (22-44); MEAN CORPUSCULAR HEMOGLOBIN 28.1 pg (27.0-34.8); MEAN CORPUSCULAR HGB CONC 31.6 g/dL (32.4-35.8); MEAN PLATELET VOLUME 8.7 fL (7.4-10.4); MONOCYTES % (AUTO) 8 % (2-9); NEUTROPHILS % (AUTO) 68 % (42-75); PLATELET COUNT 526 x10^3/uL (130-400); RED BLOOD COUNT 3.49 x10^6/uL (3.82-5.3); RED CELL DISTRIBUTION WIDTH 17.9 % (9.6-15.2)
[2020-01-08 05:23] LABS: MD NO
[2020-01-08 05:25] LABS: ANION GAP 3 mmol/L (5-15); CALCIUM 8.5 mg/dL (8.5-10.1); CHLORIDE 107 mmol/L (98-107); CREATININE 0.98 mg/dL (0.55-1.02)
[2020-01-08] MEDS ORDERED: ERTAPENEM 1 GM in SODIUM CHLORIDE 0.9% 50 ML IV SCH (09:00)
[2020-01-08 09:20] VITALS: BP 125/81
[2020-01-08] MEDS: GABAPENTIN 300 MG CAPSULE PO SCH ×2 (09:26→17:52)
[2020-01-08] MEDS: LACTATED RINGERS 1,000 ML IV SCH (09:28)
[2020-01-08 14:37] VITALS: BP 120/77
== END 2020-01-08 18:26 | disposition home or self-care (01) | DRG 570 ==
LOC: ED 15:31 → EDIP 20:28 → 4NE 12-28 00:35 → 3N 12-30 12:55
PROVIDERS: ADMIT Family Medicine; ATTEND Family Medicine
PROC: 0KBR0ZZ Excision of Left Upper Leg Muscle, Open Approach (ICD-10-PCS; 2019-12-28)
PROC: 0JBM0ZZ Excision of Left Upper Leg Subcutaneous Tissue and Fascia, Open Approach (ICD-10-PCS; 2019-12-30)
PROC: 0KBR0ZZ Excision of Left Upper Leg Muscle, Open Approach (ICD-10-PCS; 2020-01-01)
PROC: 2W1PX6Z Compression of Left Upper Leg using Pressure Dressing (ICD-10-PCS; 2020-01-01)
PROC: 0JQM0ZZ Repair Left Upper Leg Subcutaneous Tissue and Fascia, Open Approach (ICD-10-PCS; 2020-01-04)
PROC: 02HV33Z Insertion of Infusion Device into Superior Vena Cava, Percutaneous Approach (ICD-10-PCS; principal; 2020-01-06)
PROC: B5181ZA Fluoroscopy of Superior Vena Cava using Low Osmolar Contrast, Guidance (ICD-10-PCS; 2020-01-06)
PROC: B548ZZA Ultrasonography of Superior Vena Cava, Guidance (ICD-10-PCS; 2020-01-06)
DX: L02.416 Cutaneous abscess of left lower limb (principal); N17.0 Acute kidney failure with tubular necrosis; L03.116 Cellulitis of left lower limb; D25.9 Leiomyoma of uterus, unspecified; D50.0 Iron deficiency anemia secondary to blood loss (chronic); E87.6 Hypokalemia; F12.90 Cannabis use, unspecified, uncomplicated; M72.8 Other fibroblastic disorders; Y04.1XXA Assault by human bite, initial encounter; F19.10 Other psychoactive substance abuse, uncomplicated; M60.852 Other myositis, left thigh; R26.2 Difficulty in walking, not elsewhere classified; Z20.828 Contact with and (suspected) exposure to other viral communicable diseases; Z80.0 Family history of malignant neoplasm of digestive organs; Z83.3 Family history of diabetes mellitus
CPT/HCPCS: 36415; 36573; 80048; 80053; 80074; 80307; 81025; 82550; 82607; 82728; 83540; 83550; 83605; 83735; 84443; 84703; 85025; 85651; 86140; 86706; 87040; 87070; 87075; 87077; 87147; 87186; 87205; 87635; 87806; G0378; J0295; J0690; J1170; J1335; J1644; J1756; J1885; J2175; J2250; J2405; J2543; J2704; J3010; J3370; A9575; C1751; G0475; J2060; J2270; J3480; J7050; J7120